=== PATIENT | male | born 1965 | race Two or more races ===

== ENCOUNTER 2020-05-14 10:00 | Outpatient (RCR) | payer BC, SELFPAY ==
--- NOTE | 2020-05-16 11:32 | MHC.PT.DC ---
[facility] [place] [facility] [place] [facility] [place] [facility] [address] Olesya Curtis [address] [phone] F: [phone] F: [phone] F: [phone] F: [phone] Physical Therapy Discharge Report Diagnosis: OA of L knee Date of Surgery: Date of Evaluation: 04/23/20 Date of Discharge: 05/16/20 Treatments to Date: 5 Cancellations to Date: 0 No Shows to Date: 1 Discharge Status: Achieved Goals Improved Function Independent with HEP Patient Elected to Stop Discharge Summary: Patient demos good tolerance with strengthening HEP, continued to lack full quad strength with quad set as of the last appointment. Demos normal ROM. Reports going to the gym. Patient called and reported ready for DC at this time and cancelled appointments. DC to HEP Electronically signed by: Alannah Ny Please sign and return to therapist. Thank you for your referral.
== END 2020-05-16 11:32 | disposition home or self-care (01) ==
LOC: HO.PTCHIC 10:00
PROVIDERS: Visit Provider Physician Assistant
DX: M17.12 Unilateral primary osteoarthritis, left knee (principal)
CPT/HCPCS: 97110; 97112

== ENCOUNTER → 2020-06-13 10:01 | Outpatient (BNVA) | payer BC, SELFPAY | PROVIDERS: Visit Provider Physician Assistant | DX: Z76.89 Persons encountering health services in other specified circumstances (principal) ==

== ENCOUNTER 2020-06-28 07:10 | Outpatient (REF) | payer BC, SELFPAY ==
--- NOTE | 2020-06-28 07:12 | MR_ITS ---
EXAMINATION: MR KNEE WITHOUT CONTRAST, LEFT CLINICAL INFORMATION: Unilateral primary osteoarthritis left knee. COMPARISON: Multiple prior x-rays of the left knee, most recent March 2020. TECHNIQUE: MRI of the knee without contrast was performed using routine sequences on a high-field scanner. FINDINGS: MENISCI: Medial Meniscus: There is slightly irregular increased signal in the posterior horn which appears to extend to the femoral articular surface. There is also blunting at the junction of the posterior horn and body with meniscal protrusion into the femoral meniscal recess, indicative of a partially detached meniscal fragment related to meniscal tear. See coronal image 18 series 5. The fragment measures approximately 10 x 3 x 10 mm Lateral Meniscus: Intact. LIGAMENTS: Cruciate: Intact. Collateral: Intact. EXTENSOR MECHANISM: Intact. ARTICULAR CARTILAGE/BONE: Patellofemoral Compartment: There is cartilage heterogeneity and at least partial-thickness cartilage loss present within the sulcus of the trochlea over an approximately 1 cm area. Patellar cartilage is intact. Overall, mild patellofemoral arthrosis. Medial Compartment: There is scattered nonuniform up to high-grade cartilage loss, most evident in the central weightbearing portion of the compartment. Overall, cartilage loss extends into the junction the posterior weightbearing and non-weightbearing portions of the femoral condyle. There are marginal osteophytes. There are subchondral cysts and edema. Overall, moderate medial compartment arthrosis. Lateral Compartment: Mild scattered cartilage heterogeneity along the tibial articular surface posteriorly. Overall, mild arthrosis. JOINT FLUID AND BURSAE: Mild effusion and synovitis. MR/MR knee LT wo con IMPRESSION: Tear of the medial meniscus with a partially detached meniscal fragment extending into the femoral meniscal recess. Tricompartmental arthrosis with degenerative changes, most prominent in the medial compartment being moderate.
== END 2020-06-28 07:11 | disposition home or self-care (01) ==
LOC: HO.MRI 07:10
PROVIDERS: Visit Provider Physician Assistant
DX: M17.12 Unilateral primary osteoarthritis, left knee (principal)
CPT/HCPCS: 73721

== ENCOUNTER 2020-07-04 10:46 | Outpatient (REF) | payer BC, SELFPAY ==
--- NOTE | 2020-07-04 10:47 | MR_ITS ---
EXAMINATION: MR KNEE WITHOUT CONTRAST, RIGHT CLINICAL INFORMATION: Right knee arthroplasty. COMPARISON: Most recent right knee radiographs dated 04/03/2020 and right knee MRI dated 12/19/2009. TECHNIQUE: MRI of the knee without contrast was performed using routine sequences on a high-field scanner. FINDINGS: Redemonstration of a total right knee arthroplasty. Associated artifact obscures the immediately adjacent osseous structures as well as the intra-articular ligaments. No significant marrow edema to suggest hardware complication. CT examination could help further evaluate fine bony detail. No significant joint effusion. The distal quadriceps and patellar tendons are intact. The visualized muscles and tendons are grossly intact. MR/MR knee RT wo con IMPRESSION: Total right knee arthroplasty. Associated artifact significantly limits the immediately adjacent osseous structures as well as the intra-articular ligaments. No adjacent marrow edema to suggest hardware complication. If there is persistent clinical concern, CT scan could help further evaluate bony detail/hardware loosening.
== END 2020-07-04 10:47 | disposition home or self-care (01) ==
LOC: HO.MRI 10:46
PROVIDERS: Visit Provider Physician Assistant
DX: M17.12 Unilateral primary osteoarthritis, left knee (principal)
CPT/HCPCS: 73721

== ENCOUNTER 2020-09-10 09:47 | Outpatient (REF) | payer BC, SELFPAY ==
[2020-09-10 11:22] LABS: MANUAL DIFF FLAG NO
[2020-09-10 11:34] LABS: Basophils Percent Auto 0.8 % (0-2); Eosinophils Absolute Auto 0.2 X10*3/uL (0.0-0.4); Hematocrit 45.9 % (42-52); Hemoglobin 14.7 g/dl (14.0-18.0); Imm Gran Abs Auto 0.01 X10*3/uL (0.00-0.03); Imm Gran Pct Auto 0.2 % (0.0-0.4); Lymphocytes Absolute Auto 2.1 X10*3/uL (1.2-4.9); Lymphocytes Percent Auto 39.8 % (20-40); Mean Corpuscular Hemoglobin 31.1 pg (27.0-33.0); Mean Corpuscular Volume 97.2 fL (80-98); Mean Platelet Volume 9.2 fL (9.4-12.4); Monocytes Absolute Auto 0.4 X10*3/uL (0.1-1.2); Monocytes Percent Auto 7.1 % (2-11); Neutrophils Absolute Auto 2.6 X10*3/uL (2.0-8.3); Neutrophils Percent Auto 49.1 % (45-73); Platelet Count 237 X10*3/uL (160-400); Red Blood Count 4.72 X10*6/uL (4.60-5.80); Red Cell Distribution Width 13.3 % (11.0-16.0); White Blood Count 5.3 X10*3/uL (4.8-10.8)
[2020-09-10 12:03] LABS: Alanine Aminotransferase 21 U/L (0-40); Albumin Level 4.7 g/dL (3.5-5.0); Alkaline Phosphatase 45 U/L (39-117); Anion Gap 12 (12-20); Aspartate Amino Transferase 35 U/L (5-37); Bilirubin Total 0.5 mg/dL (0.0-1.0); Blood Urea Nitrogen 21 mg/dL (9-16); Calcium 9.1 mg/dL (8.4-10.2); Carbon Dioxide 30 mmol/L (22-29); Chloride 107 mmol/L (96-108); Cholesterol 239 mg/dL; Estimated Glomerular Filt Rate 57; Glucose Fasting 98 mg/dL (60-99); HDL Cholesterol 79 mg/dL; LDL Cholesterol Calculated 148 mg/dl; Potassium 4.9 mmol/L (3.3-5.1); Sodium 144 mmol/L (135-145); Total Protein 7.2 g/dL (6.5-8.0); Triglycerides 62 mg/dL
[2020-09-10 12:25] LABS: Free T4 (Free Thyroxine) 0.49 ng/dL (0.71-1.85); PSA,Total (Free>4and<10) 0.44 ng/mL (0.00-4.00)
[2020-09-11 05:16] LABS: Thyroid Peroxidase Antibodies 11 IU/mL (<9)
== END 2020-09-10 09:48 | disposition home or self-care (01) ==
LOC: HO.HMGCLDS 09:47
PROVIDERS: Orthopaedic Surgery; PCP Internal Medicine; Visit Provider Internal Medicine
DX: Z01.812 Encounter for preprocedural laboratory examination (principal); E78.5 Hyperlipidemia, unspecified; E03.9 Hypothyroidism, unspecified; I10 Essential (primary) hypertension; Z12.5 Encounter for screening for malignant neoplasm of prostate; Z80.42 Family history of malignant neoplasm of prostate
CPT/HCPCS: 36415; 80053; 80061; 84153; 84439; 84443; 85025; 86376

== ENCOUNTER → 2020-10-08 11:36 | Outpatient (BNVA) | payer BC, SELFPAY | PROVIDERS: PCP Internal Medicine; Visit Provider Physician Assistant ==

== ENCOUNTER 2020-11-12 09:06 | Outpatient (REF) | payer BC, SELFPAY ==
[2020-11-12 11:55] LABS: Anion Gap 11 (12-20); Blood Urea Nitrogen 18 mg/dL (9-16); Calcium 9.2 mg/dL (8.4-10.2); Carbon Dioxide 31 mmol/L (22-29); Chloride 105 mmol/L (96-108); Estimated Glomerular Filt Rate > 60; Glucose Random 94 mg/dL (60-115); Potassium 4.9 mmol/L (3.3-5.1); Sodium 142 mmol/L (135-145)
[2020-11-12 12:22] LABS: Thyroid Stimulating Hormone 15.39 uIU/mL (0.32-4.0)
[2020-11-12 12:41] LABS: Free T4 (Free Thyroxine) 0.81 ng/dL (0.71-1.85)
[2020-11-16 14:37] LABS: Testosterone, Free 63.2 pg/mL (35.0-155.0); Testosterone, Total 381 ng/dL (250-1100)
== END 2020-11-12 09:07 | disposition home or self-care (01) ==
LOC: HO.HMGCLDS 09:06
PROVIDERS: Orthopaedic Surgery; PCP Internal Medicine; Visit Provider Internal Medicine
DX: Z01.812 Encounter for preprocedural laboratory examination (principal); E89.0 Postprocedural hypothyroidism; N52.9 Male erectile dysfunction, unspecified
CPT/HCPCS: 36415; 80048; 84402; 84403; 84439; 84443

== ENCOUNTER 2020-11-13 07:45 | Day surgery (SDC) | payer BC, SELFPAY ==
[2020-11-06 16:03] VITALS: BMI 27.8
[2020-11-13 08:33] VITALS: BP 149/85; PULSE 59; RESP 18; TEMP 35.6; O2SAT 98
[2020-11-13] MEDS: Lactated Ringers 1,000 ML 50 ML IV (09:05)
--- NOTE | 2020-11-13 09:28 | P.HPSUR_ITS ---
Pre-Procedural Eval Section B Chief Complaint: Screening Relevant Family History (Specify if Yes): No Relevant Social History: None Present Medications: see Short Stay Collaborative assessment Medical History: Significant History (Dyslipidemia Essential hypertension Family history of prostate cancer in father Hyperlipemia Hypothyroid Lumbar disc herniation Postablative hypothyroidism) History of Previous Operations: Relevant previous surgery/procedure and date(s) (knee replacement) Allergies: Allergies Allergy/AdvReac Type Severity Reaction Status Date / Time No Known Allergies Allergy Verified 11/12/20 09:06 [No Known Allergies*] Review of Systems Sugical H&P ROS: Negative: Constitution, Cardiovascular, Respiratory, Neurological, Psychiatric, Hem-Onc, Allergic/Immunologic, Gastrointestinal, Genitourinary, Musculoskeletal, Integumentary, Endocrine and Eyes/Ears/Nose/ Throat Exam Surgical H&P Exam: Normal: HEENT, Normal: Heart, Normal: Lungs, Normal: Extremities, Normal: Abdomen, Normal: Skin and Normal: Neurological Plan Diagnosis/Plan: Unchanged I have reviewed the history and physical and performed a pertinent physical examination on my patient. No changes have occurred unless specified.
--- NOTE | 2020-11-13 09:33 | HO.ANESPROP2 ---
[facility] Active Problems Active Problems: All Active Problems (Updated 11/12/20 @ 09:02 by Cara Baugh MD) Erectile dysfunction (Acute) Osteoarthritis of left knee (Acute) Hemorrhoids (Acute) Postablative hypothyroidism (Acute) Family history of prostate cancer in father (Acute) Prostate cancer screening (Acute) Colon cancer screening (Acute) Lumbar disc herniation (Acute) Dyslipidemia (Acute) Essential hypertension (Acute) Past Medical History Medical History Colon cancer screening Dyslipidemia Erectile dysfunction Essential hypertension Family history of prostate cancer in father Hyperlipemia Hypothyroid Lumbar disc herniation Postablative hypothyroidism Prostate cancer screening Family History Family History Mother GERD (gastroesophageal reflux disease) Breast cancer Father HTN (hypertension) CVA (cerebral vascular accident) Prostate cancer Surgical History Surgical History History of circumcision History of total right knee replacement Social History Social History Household Members: Spouse Are you a primary dog daycare provider to a significant other at home: No Do you presently have visiting nurse or other home services: No Alcohol intake: current Alcohol intake frequency: a few times a week Alcohol type: beer Smoking Status: Former smoker Use of substances other than those prescribed or required for medical reasons: No Have you been hit, kicked, punched, or otherwise hurt by someone within the past year? 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 Meds Allergies Allergy/AdvReac Type Severity Reaction Status Date / Time No Known Allergies Allergy Verified 11/12/20 09:06 [No Known Allergies*] Active Medications: Current Medications Generic Name Dose Route Start Last Admin Trade Name Freq PRN Reason Stop Dose Admin Lactated Ringer's 1,000 mls @ 50 mls/hr 11/13/20 07:15 11/13/20 09:05 Lr IV 50 mls/hr .Q20H MOISÉS Administration Exam Exam Date and Time: November 13, 2020 0933 Height,Weight and Vital Signs: Height 5 ft 7 in Weight 80.739 kg Last Vital Signs Temp 96.0 F L 11/13/20 08:33 Pulse 59 11/13/20 08:33 Resp 18 11/13/20 08:33 BP 149/85 H 11/13/20 08:33 Pulse Ox 98 11/13/20 08:33 Airway Mallampati Class: I TM Dist: >3cm Neck ROM: Full Loose/Missing/Broken Teeth: No Assessment and Plan Assessment Anesthesia Assessment: Anesthesia Plan Discussed Final Anesthetic Review NPO: Yes ASA Class: II Final Preanesthetic Review: No Changes in Pt Med Stat, Meds/Allgs Chart Reviewed, Consent Obtained/Reviewed and Anes Risks/Benef Reviewed Patient Risk: Low Procedure Risk: Low Anesthetic Plan Anesthetic Plan: MAC: Disposition: Standard PACU
--- NOTE | 2020-11-13 09:42 | PM.OP ---
Brief Operative Note Date of Service: 11/13/20 Pre-op diagnosis: colon screening Post-op diagnosis: same Procedure: see op note Surgeon: Ronnie Moore MD Anesthesia: MAC Estimated blood loss (mL): 0 Condition: stable Disposition: PACU
--- NOTE | 2020-11-13 09:42 | W.PM.OPN ---
Operative Note Operative Note Date of Service: 11/13/20 Narrative: Operative Information Procedure Description: Colonoscopy COLONOSCOPY Instrument: Olympus variable stiffness pediatric scope 190L Colonoscopy Monitoring: Vital signs and clinical assessment, continuous EKG monitoring, Pulse oximetry, Carbon Dioxide monitoring and blood pressure monitoring were done throughout the procedure. Colon withdrawal time was 10 minutes. Procedure: The patient was placed in the left lateral decubitis position and pre-procedure medications were administered. After a digital rectal examination of the ano-rectum, the video colonoscope was inserted into the rectum and advanced through the colon to the cecum/TI. The colonoscope was slowly withdrawn in a retrograde panoramic fashion and the colon mucosa was carefully examined including a retroflexed view of the rectum. Findings and interventions are described below. Procedure Difficulty:easy Findings: Terminal Ileum-normal Cecum:normal Ascending Colon: normal Transverse Colon -normal Descending Colon:normal Sigmoid Colon: normal Rectum: Retroflexion with internal and external hemorrhoids Anorectum - normal Colon preparation: Crawley Bowel Preparation Scale Right colon; 2 Transverse colon: 2 Left colon; 2 (0 = Unprepared colon segment with mucosa not seen due to solid stool that cannot be cleared. 1 = Portion of mucosa of the colon segment seen, but other areas of the colon segment not well seen due to staining, residual stool and/or opaque liquid. 2 = Minor amount of residual staining, small fragments of stool and/or opaque liquid, but mucosa of colon segment seen well. 3 = Entire mucosa of colon segment seen well with no residual staining, small fragments of stool or opaque liquid) Impression and Post Procedure Diagnosis: internal and external hemorrhoids Plan: High fiber diet leaflet Avoid straining at stool, epsom salts and sitz bath, anusol supps or cream prn Repeat Colonoscopy in 10 years or earlier if clinically indicated Above findings were reviewed with the patient and relevant handouts were provided if indicated.
[2020-11-13 10:10] VITALS: BP 114/67; PULSE 54; RESP 12; TEMP 36.1; O2SAT 98
[2020-11-13 10:23] VITALS: BP 121/83; PULSE 47; RESP 16; O2SAT 99
[2020-11-13 10:35] VITALS: PULSE 56; TEMP 35.9
== END 2020-11-13 10:50 | disposition home or self-care (01) ==
PROVIDERS: PCP Internal Medicine; Visit Provider Internal Medicine Gastroenterology
PROC: 0DJD8ZZ Inspection of Lower Intestinal Tract, Via Natural or Artificial Opening Endoscopic (ICD-10-PCS; CPT 45378; principal; 2020-11-13 09:20)
DX: Z12.11 Encounter for screening for malignant neoplasm of colon (principal); K64.8 Other hemorrhoids; K64.4 Residual hemorrhoidal skin tags; I10 Essential (primary) hypertension; E89.0 Postprocedural hypothyroidism; Y83.9 Surgical procedure, unspecified as the cause of abnormal reaction of the patient, or of later complication, without mention of misadventure at the time of the procedure; Z79.899 Other long term (current) drug therapy
CPT/HCPCS: 45378

== ENCOUNTER → 2020-11-28 11:03 | Outpatient (BNVA) | payer BC, SELFPAY | PROVIDERS: Visit Provider Physician Assistant ==

== ENCOUNTER 2020-12-16 11:36 | Outpatient (REF) | payer BC, SELFPAY ==
[2020-12-16 14:38] LABS: Alanine Aminotransferase 19 U/L (0-40); Anion Gap 12 (12-20); Aspartate Amino Transferase 23 U/L (5-37); Blood Urea Nitrogen 21 mg/dL (9-16); Calcium 9.4 mg/dL (8.4-10.2); Carbon Dioxide 28 mmol/L (22-29); Chloride 107 mmol/L (96-108); Cholesterol 171 mg/dL; Estimated Glomerular Filt Rate > 60; Glucose Fasting 89 mg/dL (60-99); HDL Cholesterol 93 mg/dL; LDL Cholesterol Calculated 68 mg/dl; Potassium 5.2 mmol/L (3.3-5.1); Sodium 142 mmol/L (135-145); Triglycerides 53 mg/dL
[2020-12-16 14:45] LABS: Cholesterol 183 mg/dL; HDL Cholesterol 93 mg/dL; LDL Cholesterol Calculated 80 mg/dl; Triglycerides 52 mg/dL
[2020-12-16 14:47] LABS: Free T4 (Free Thyroxine) 0.78 ng/dL (0.71-1.85); Thyroid Stimulating Hormone 11.25 uIU/mL (0.32-4.0)
[2020-12-17 18:56] LABS: Thyroid Peroxidase Antibodies 9 IU/mL (<9)
== END 2020-12-16 11:37 | disposition home or self-care (01) ==
LOC: HO.HMGCLDS 11:36
PROVIDERS: PCP Internal Medicine; Visit Provider Internal Medicine
DX: E78.5 Hyperlipidemia, unspecified (principal); E89.0 Postprocedural hypothyroidism; I10 Essential (primary) hypertension
CPT/HCPCS: 36415; 80048; 80061; 84439; 84443; 84450; 84460; 86376

== ENCOUNTER 2021-04-01 10:14 | Outpatient (REF) | payer BC, SELFPAY ==
[2021-04-01 12:01] LABS: Alanine Aminotransferase 20 U/L (0-40); Anion Gap 12 (12-20); Aspartate Amino Transferase 27 U/L (5-37); Blood Urea Nitrogen 18 mg/dL (9-16); Calcium 9.4 mg/dL (8.4-10.2); Carbon Dioxide 30 mmol/L (22-29); Chloride 105 mmol/L (96-108); Cholesterol 172 mg/dL; Estimated Glomerular Filt Rate > 60; Glucose Fasting 96 mg/dL (60-99); HDL Cholesterol 81 mg/dL; LDL Cholesterol Calculated 78 mg/dl; Potassium 4.5 mmol/L (3.3-5.1); Sodium 142 mmol/L (135-145); Triglycerides 67 mg/dL
[2021-04-01 12:24] LABS: Free T4 (Free Thyroxine) 0.61 ng/dL (0.71-1.85); Thyroid Stimulating Hormone 23.67 uIU/mL (0.32-4.0)
== END 2021-04-01 10:15 | disposition home or self-care (01) ==
LOC: HO.HMGCLDS 10:14
PROVIDERS: PCP Internal Medicine; Visit Provider Internal Medicine
DX: E78.5 Hyperlipidemia, unspecified (principal); E89.0 Postprocedural hypothyroidism; I10 Essential (primary) hypertension
CPT/HCPCS: 36415; 80048; 80061; 84439; 84443; 84450; 84460

== ENCOUNTER 2021-08-07 08:38 | Outpatient (REF) | payer BC, SELFPAY ==
--- NOTE | ~2021-08-07 | XR_ITS ---
EXAMINATION: XR KNEE, LEFT XR KNEE STANDING, BILATERAL CLINICAL INFORMATION: Pain COMPARISON: MRI right knee from 07/04/2020, MRI left knee from 06/28/2020, bilateral knee radiographs from 04/03/2020 TECHNIQUE: Standing views of both knees and 2 views of the left knee FINDINGS: No acute visible fracture or dislocation. Status post right knee arthroplasty. Orthopedic hardware is grossly intact. Moderate multicompartment degenerative changes of the left knee. Moderate narrowing of the medial femorotibial compartments and lateral patellofemoral compartment. Periarticular osteophytes along the superior inferior margins of the patella. Joint spaces and alignment are otherwise maintained. Trace left-sided knee joint effusion. Soft tissues are unremarkable. XR/XR knee LT 2V IMPRESSION: 1. No acute visible fracture or dislocation. 2. Status post right knee arthroplasty. Orthopedic hardware is grossly intact. 3. Moderate multicompartment degenerative changes of the left knee. 4. Trace left-sided knee joint effusion.
--- NOTE | ~2021-08-07 | XR_ITS ---
EXAMINATION: XR KNEE, LEFT XR KNEE STANDING, BILATERAL CLINICAL INFORMATION: Pain COMPARISON: MRI right knee from 07/04/2020, MRI left knee from 06/28/2020, bilateral knee radiographs from 04/03/2020 TECHNIQUE: Standing views of both knees and 2 views of the left knee FINDINGS: No acute visible fracture or dislocation. Status post right knee arthroplasty. Orthopedic hardware is grossly intact. Moderate multicompartment degenerative changes of the left knee. Moderate narrowing of the medial femorotibial compartments and lateral patellofemoral compartment. Periarticular osteophytes along the superior inferior margins of the patella. Joint spaces and alignment are otherwise maintained. Trace left-sided knee joint effusion. Soft tissues are unremarkable. XR/XR knee standing BI IMPRESSION: 1. No acute visible fracture or dislocation. 2. Status post right knee arthroplasty. Orthopedic hardware is grossly intact. 3. Moderate multicompartment degenerative changes of the left knee. 4. Trace left-sided knee joint effusion.
== END 2021-08-07 08:39 | disposition home or self-care (01) ==
LOC: HO.HOSX 08:38
PROVIDERS: Visit Provider Orthopaedic Surgery
DX: M17.12 Unilateral primary osteoarthritis, left knee (principal)
CPT/HCPCS: 73560; 73565

== ENCOUNTER 2021-09-23 09:47 | Outpatient (REF) | payer BC, SELFPAY ==
[2021-09-23 12:05] LABS: Alanine Aminotransferase 17 U/L (0-40); Anion Gap 12 (12-20); Aspartate Amino Transferase 25 U/L (5-37); Blood Urea Nitrogen 22 mg/dL (9-16); Calcium 9.4 mg/dL (8.4-10.2); Carbon Dioxide 28 mmol/L (22-29); Chloride 108 mmol/L (96-108); Cholesterol 170 mg/dL; Estimated Glomerular Filt Rate > 60; Glucose Fasting 97 mg/dL (60-99); HDL Cholesterol 75 mg/dL; LDL Cholesterol Calculated 75 mg/dl; Potassium 4.6 mmol/L (3.3-5.1); Sodium 143 mmol/L (135-145); Triglycerides 101 mg/dL
[2021-09-23 12:15] LABS: Free T4 (Free Thyroxine) 0.65 ng/dL (0.71-1.85); Thyroid Stimulating Hormone 15.88 uIU/mL (0.32-4.0)
== END 2021-09-23 09:48 | disposition home or self-care (01) ==
LOC: HO.HMGCLDS 09:47
PROVIDERS: PCP Internal Medicine; Visit Provider Internal Medicine
DX: E03.9 Hypothyroidism, unspecified (principal); E78.5 Hyperlipidemia, unspecified; E89.0 Postprocedural hypothyroidism; I10 Essential (primary) hypertension
CPT/HCPCS: 36415; 80048; 80061; 84439; 84443; 84450; 84460

== ENCOUNTER → 2021-10-01 09:51 | Outpatient (BNVA) | payer BC, SELFPAY | PROVIDERS: PCP Internal Medicine; Visit Provider Orthopaedic Surgery ==

== ENCOUNTER 2021-10-20 10:30 | Outpatient (REF) | payer BC, SELFPAY ==
[2021-10-20 11:32] LABS: MANUAL DIFF FLAG NO
[2021-10-20 11:51] LABS: Basophils Percent Auto 0.3 % (0-2); Eosinophils Absolute Auto 0.2 X10*3/uL (0.0-0.4); Eosinophils Percent Auto 3.1 % (0-4); Hematocrit 47.6 % (42.0-52.0); Hemoglobin 15.1 g/dl (14.0-18.0); Imm Gran Abs Auto 0.01 X10*3/uL (0.00-0.03); Imm Gran Pct Auto 0.2 % (0.0-0.4); Lymphocytes Absolute Auto 2.6 X10*3/uL (1.2-4.9); Lymphocytes Percent Auto 44.1 % (20-40); Mean Corpuscular HGB Conc 31.7 g/dl (31.0-36.0); Mean Corpuscular Volume 97.7 fL (80.0-98.0); Mean Platelet Volume 9.4 fL (9.4-12.4); Monocytes Absolute Auto 0.6 X10*3/uL (0.1-1.2); Neutrophils Absolute Auto 2.5 x10*3/uL (2.0-8.3); Neutrophils Percent Auto 42.3 % (45-73); Platelet Count 230 X10*3/uL (160-400); Red Blood Count 4.87 X10*6/uL (4.60-5.80); White Blood Count 5.9 X10*3/uL (4.8-10.8)
[2021-10-20 12:02] LABS: Anion Gap 10 (12-20); Blood Urea Nitrogen 18 mg/dL (9-16); Calcium 9.6 mg/dL (8.4-10.2); Carbon Dioxide 31 mmol/L (22-29); Chloride 105 mmol/L (96-108); Estimated Glomerular Filt Rate > 60; Glucose Random 99 mg/dL (60-115); Potassium 4.4 mmol/L (3.3-5.1); Sodium 142 mmol/L (135-145)
== END 2021-10-20 10:31 | disposition home or self-care (01) ==
LOC: HO.HMGCLDS 10:30
PROVIDERS: Visit Provider Orthopaedic Surgery
DX: Z01.812 Encounter for preprocedural laboratory examination (principal)
CPT/HCPCS: 36415; 80048; 85025

== ENCOUNTER → 2021-10-30 09:45 | Outpatient (BNVA) | payer BC, SELFPAY | PROVIDERS: Visit Provider Physician Assistant | DX: Z13.89 Encounter for screening for other disorder (principal) ==

== ENCOUNTER 2021-11-04 07:29 | Inpatient (IN) | payer BC, SELFPAY ==
--- NOTE | 2021-10-01 10:34 | ECG_ITS ---
Test Reason : Z01.818 Blood Pressure : / mmHG Vent. Rate : 050 BPM Atrial Rate : 050 BPM P-R Int : 158 ms QRS Dur : 102 ms QT Int : 448 ms P-R-T Axes : 029 010 044 degrees QTc Int : 408 ms Sinus bradycardia Minimal voltage criteria for LVH, may be normal variant ( Sokolow-Rosenberg ) Nonspecific T wave abnormality Abnormal ECG When compared with ECG of 15-MAR-2013 18:40, No significant change was found Referred By: Cara Baugh Electronically Signed By:CODY DIEZ MD
[2021-10-28 11:57] VITALS: BP 160/87; PULSE 48; RESP 16; O2SAT 98; BMI 28.4
--- NOTE | 2021-10-28 12:14 | HO.ANESPROP2 ---
Documented by User: Latricia Murillo NP 11/03/21 08:11 HPI - Anesthesia Eval Consult details Narrative: 56yo M for Left Knee Replacement Total PCP clearance pending 10/29/21 s/p R TKA in 2012 [facility] Active Problems Active Problems: All Active Problems (Updated 10/28/21 @ 11:57 by Susy Sal RN) Osteoarthritis of left knee (Acute) Hemorrhoids (Acute) Mixed anxiety and depressive disorder (Acute) Erectile dysfunction (Acute) Postablative hypothyroidism (Acute) Family history of prostate cancer in father (Acute) Prostate cancer screening (Acute) Colon cancer screening (Acute) Lumbar disc herniation (Acute) Dyslipidemia (Acute) Essential hypertension (Acute) Past Medical History Medical History (Updated 10/31/21 @ 11:55 by Cara Baugh MD) Dyslipidemia Erectile dysfunction Essential hypertension Family history of prostate cancer in father Hyperlipemia Hypothyroid Lumbar disc herniation Mixed anxiety and depressive disorder Osteoarthritis Postablative hypothyroidism Family History Family History Mother GERD (gastroesophageal reflux disease) Breast cancer Father HTN (hypertension) CVA (cerebral vascular accident) Prostate cancer Family history of problems with anesthesia: No Surgical History Surgical History History of circumcision History of total right knee replacement Hx of colonoscopy History of Problems with Anesthesia: No Social History Social History Household Members: Family Household Members Other:: father Housing: House Are you a primary career manager to a significant other at home: No Do you presently have visiting nurse or other home services: No Alcohol intake: current Alcohol intake frequency: a few times a month Patient Tobacco Use Status: Never used Tobacco e-Cigarette/Vaping Use: Never Used Use of substances other than those prescribed or required for medical reasons: No Have you been hit, kicked, punched, or otherwise hurt by someone within the past year? If so, by whom?: No Do you feel safe in your current relationship?: Yes Is there a partner from a previous relationship who is making you feel unsafe now?: No Are you made to feel afraid or neglected: No Spiritual Healthcare Practices: none Orthodoxy Healthcare Practices: none Cultural Healthcare Practices: none Are you DNR?: No Advance Directives: No Advance Directives Information Provided: Yes Do you have thoughts of harming others: None Do you have a plan to hurt others: No Plan Recently lost weight without trying: No Eating poorly because of decreased appetite: No Nutrition Risks: No Nutritional Risk Poor oral hygiene: No Current occupational status: employed 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 Resolved completely at PAT No CP/SOB with activity. Activity limited to pain Meds Allergies Allergy/AdvReac Type Severity Reaction Status Date / Time No Known Allergies Allergy Verified 10/31/21 11:46 [No Known Allergies*] Home Medications Medication Instructions Recorded Confirmed Last Taken Type acetaminophen 500 mg tablet 1,000 mg PO QID PRN 10/28/21 10/31/21 Unknown History celecoxib 200 mg capsule 200 mg PO BID PRN 10/28/21 10/31/21 Unknown History tadalafil 20 mg tablet 1 tab PO NEEDED PRN 11/04/21 11/04/21 Unknown History Exam Exam Date and Time: October 28, 2021 1214 Height,Weight and Vital Signs: Height 5 ft 6 in Weight 79.9 kg Last Vital Signs Pulse 48 L 10/28/21 11:57 Resp 16 10/28/21 11:57 BP 160/87 H 10/28/21 11:57 Pulse Ox 98 10/28/21 11:57 Pertinent Lab Results Pertinent Lab Results: Laboratory Tests 10/20/21 10/20/21 10:34 10:34 WBC 5.9 Hgb 15.1 Hct 47.6 Plt Count 230 Sodium 142 Potassium 4.4 Chloride 105 Carbon Dioxide 31 H BUN 18 H Creatinine 1.06 Airway Mallampati Class: I TM Dist: >3cm Neck ROM: Full Heart: elba, RR Lungs: CTAB Assessment and Plan Assessment Anesthesia Assessment: Anesthesia Plan Discussed and PAT Visit Final Anesthetic Review Family History of Problems with Anesthesia: No History of Problems with Anesthesia: No Documented by User: Eligio Turner MD 11/04/21 17:24 HPI - Anesthesia Eval Consult details Narrative: 56yo M for Left Knee Replacement Total PCP clearance pending 10/29/21 atypical chest pain , last episode 1 year . optimized as per PCP . s/p R TKA in 2012 [facility] Past Medical History Medical History (Updated 10/31/21 @ 11:55 by Cara Baugh MD) Dyslipidemia Erectile dysfunction Essential hypertension Family history of prostate cancer in father Hyperlipemia Hypothyroid Lumbar disc herniation Mixed anxiety and depressive disorder Osteoarthritis Postablative hypothyroidism Functional capacity: independent ambulation Family History Family History Mother GERD (gastroesophageal reflux disease) Breast cancer Father HTN (hypertension) CVA (cerebral vascular accident) Prostate cancer Surgical History Surgical History History of circumcision History of total right knee replacement Hx of colonoscopy Social History Social History Household Members: Family Household Members Other:: father Housing: House Are you a primary career manager to a significant other at home: No Do you presently have visiting nurse or other home services: No Alcohol intake: current Alcohol intake frequency: a few times a month Patient Tobacco Use Status: Never used Tobacco e-Cigarette/Vaping Use: Never Used Use of substances other than those prescribed or required for medical reasons: No Have you been hit, kicked, punched, or otherwise hurt by someone within the past year? If so, by whom?: No Do you feel safe in your current relationship?: Yes Is there a partner from a previous relationship who is making you feel unsafe now?: No Are you made to feel afraid or neglected: No Spiritual Healthcare Practices: none Orthodoxy Healthcare Practices: none Cultural Healthcare Practices: none Are you DNR?: No Advance Directives: No Advance Directives Information Provided: Yes Do you have thoughts of harming others: None Do you have a plan to hurt others: No Plan Recently lost weight without trying: No Eating poorly because of decreased appetite: No Nutrition Risks: No Nutritional Risk Poor oral hygiene: No Current occupational status: employed 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 Cognitive needs: No Hearing needs: No Vision needs: No Meds Allergies Allergy/AdvReac Type Severity Reaction Status Date / Time No Known Allergies Allergy Verified 10/31/21 11:46 [No Known Allergies*] Home Medications Medication Instructions Recorded Confirmed Last Taken Type acetaminophen 500 mg tablet 1,000 mg PO QID PRN 10/28/21 10/31/21 Unknown History celecoxib 200 mg capsule 200 mg PO BID PRN 10/28/21 10/31/21 Unknown History tadalafil 20 mg tablet 1 tab PO NEEDED PRN 11/04/21 11/04/21 Unknown History Exam Airway Mallampati Class: III Loose/Missing/Broken Teeth: Yes Assessment and Plan Assessment Anesthesia Assessment: Chart Reviewed Final Anesthetic Review NPO: Yes ASA Class: II Final Preanesthetic Review: No Changes in Pt Med Stat, Meds/Allgs Chart Reviewed, Consent Obtained/Reviewed and Anes Risks/Benef Reviewed Patient Risk: Intermediate Procedure Risk: Intermediate Anesthetic Plan Anesthetic Plan: Spinal and Regional Block Disposition: Standard PACU
[2021-10-28 14:02] LABS: MRSA Nasal PCR NEGATIVE (Negative); SA Nasal PCR NEGATIVE (Negative)
[2021-11-04] VITALS (11 sets, daily range): BP systolic 90–185; BP diastolic 47–93; PULSE 38–82; RESP 16–18; TEMP 36.1–37.1; O2SAT 96–100
--- NOTE | ~2021-11-04 | XR_ITS ---
EXAMINATION: XR KNEE, LEFT CLINICAL INFORMATION: Total knee prosthesis COMPARISON: 08/07/2021 TECHNIQUE: Two views of the left knee. FINDINGS: Since the prior study, the patient has undergone a left total knee prosthesis. The prosthetic components are in good position. Surgical luana remain in place. Air is present in the joint space and subcutaneous tissues consistent with median postoperative state. XR/XR knee LT 2V IMPRESSION: Normal postop findings left total knee replacement
--- NOTE | 2021-11-04 08:49 | PC.NURSE ---
patient drank tea and milk only at 730am. scheduled procedure delayed per anesthesia md rayo. cant have the procedure until 1130am per anaesthesia and paul ok to proceed.
[2021-11-04 09:01] LABS: COVID-19 Test Negative (Negative)
[2021-11-04 09:04] LABS: MANUAL DIFF FLAG NO
[2021-11-04 09:10] LABS: Basophils Percent Auto 0.5 % (0-2); Eosinophils Absolute Auto 0.1 X10*3/uL (0.0-0.4); Eosinophils Percent Auto 1.9 % (0-4); Hematocrit 46.3 % (42.0-52.0); Hemoglobin 15.1 g/dl (14.0-18.0); Imm Gran Abs Auto 0.03 X10*3/uL (0.00-0.03); Imm Gran Pct Auto 0.5 % (0.0-0.4); Lymphocytes Absolute Auto 1.9 X10*3/uL (1.2-4.9); Lymphocytes Percent Auto 29.6 % (20-40); Mean Corpuscular HGB Conc 32.6 g/dl (31.0-36.0); Mean Corpuscular Hemoglobin 31.3 pg (27.0-33.0); Mean Corpuscular Volume 96.1 fL (80.0-98.0); Mean Platelet Volume 8.7 fL (9.4-12.4); Monocytes Absolute Auto 0.6 X10*3/uL (0.1-1.2); Neutrophils Absolute Auto 3.8 x10*3/uL (2.0-8.3); Neutrophils Percent Auto 58.5 % (45-73); Platelet Count 246 X10*3/uL (160-400); Red Blood Count 4.82 X10*6/uL (4.60-5.80); Red Cell Distribution Width 13.2 % (11.0-16.0); White Blood Count 6.5 X10*3/uL (4.8-10.8)
--- NOTE | 2021-11-04 10:43 | MHC.SHP ---
Pre-Procedural Eval Section A Date of Service: 11/04/21 The patient is an INPATIENT: No Changes since office visit: Yes Patient answered all questions; No Cold of Flu in the past 2 weeks, No New Medical Problems and No Changes in Medication The History & Physical has been completed within 30 days and I have reviewed it.: Yes Section B Chief Complaint: LT TKA Allergies: Allergies Allergy/AdvReac Type Severity Reaction Status Date / Time No Known Allergies Allergy Verified 10/31/21 11:46 [No Known Allergies*] Plan I have reviewed the history and physical and performed a pertinent physical examination on my patient. No changes have occurred unless specified.
[2021-11-04] MEDS: Lactated Ringers 1,000 ML 100 ML IVCONT ×2 (10:58→19:46)
--- NOTE | 2021-11-04 15:16 | PM.OP ---
Brief Operative Note Date of Service: 11/04/21 Pre-op diagnosis: left knee OA Post-op diagnosis: same Procedure: Left TKA Implants: Stryler triathalon cruciate retaining press fit 10/28/11CR/35a Surgeon: Wang Dasilva MD Anesthesia: regional and spinal Was an Oceanology Teacher used for this Procedure?: Yes Oceanology Teacher: Julee Flowers Estimated blood loss (mL): 150 IV fluids (mL): 1,000 Pathology: other Condition: stable Disposition: PACU
[2021-11-04] MEDS: oxyCODONE HCl ER 10 MG TAB.ER.12H PO (19:42)
[2021-11-04] MEDS: Docusate Sodium 100 MG CAPSULE PO (19:42)
[2021-11-04] MEDS: HYDROmorphone HCl 1 MG/ML SYRINGE 0.25 MG IVPUSH ×2 (19:43→23:45)
[2021-11-04] MEDS: Celecoxib 200 MG CAPSULE PO (19:43)
[2021-11-04] MEDS: 0.9 % Sodium Chloride Flush 3 ML SYRINGE IVFLUSH (19:44)
[2021-11-04] MEDS: ondansetron HCL 4 MG/2 ML VIAL IVPUSH (19:56)
[2021-11-04] MEDS: Acetaminophen 325 MG TABLET 650 MG PO (22:18)
[2021-11-04] MEDS: oxyCODONE HCl Immed Release 5 MG TABLET PO (22:18)
[2021-11-05] VITALS (8 sets, daily range): BP systolic 141–180; BP diastolic 73–91; PULSE 52–58; RESP 17–18; TEMP 36.1–36.6; O2SAT 96–98
[2021-11-05] MEDS: HYDROmorphone HCl 1 MG/ML SYRINGE 0.25 MG IVPUSH ×4 (04:14→22:51)
[2021-11-05] MEDS: Levothyroxine Sodium 150 MCG TABLET PO (05:18)
[2021-11-05] MEDS: Lactated Ringers 1,000 ML 100 ML IVCONT ×2 (05:18→16:34)
[2021-11-05 06:00] LABS: MANUAL DIFF FLAG NO
[2021-11-05 06:06] LABS: Basophils Percent Auto 0.1 % (0-2); Hematocrit 41.4 % (42.0-52.0); Hemoglobin 13.4 g/dl (14.0-18.0); Imm Gran Abs Auto 0.04 X10*3/uL (0.00-0.03); Imm Gran Pct Auto 0.3 % (0.0-0.4); Lymphocytes Absolute Auto 1.5 X10*3/uL (1.2-4.9); Lymphocytes Percent Auto 11.1 % (20-40); Mean Corpuscular HGB Conc 32.4 g/dl (31.0-36.0); Mean Corpuscular Hemoglobin 30.8 pg (27.0-33.0); Mean Corpuscular Volume 95.2 fL (80.0-98.0); Mean Platelet Volume 8.9 fL (9.4-12.4); Monocytes Absolute Auto 1.1 X10*3/uL (0.1-1.2); Monocytes Percent Auto 8.5 % (2-11); Neutrophils Absolute Auto 10.6 x10*3/uL (2.0-8.3); Platelet Count 224 X10*3/uL (160-400); Red Blood Count 4.35 X10*6/uL (4.60-5.80); Red Cell Distribution Width 12.9 % (11.0-16.0); White Blood Count 13.2 X10*3/uL (4.8-10.8)
[2021-11-05 06:33] LABS: Anion Gap 13 (12-20); Blood Urea Nitrogen 17 mg/dL (9-16); Calcium 9.2 mg/dL (8.4-10.2); Carbon Dioxide 27 mmol/L (22-29); Chloride 103 mmol/L (96-108); Creatinine Clr Calc Pharmacy 86.4; Estimated Glomerular Filt Rate > 60; Glucose Fasting 137 mg/dL (60-99); Potassium 4.8 mmol/L (3.3-5.1); Sodium 138 mmol/L (135-145)
--- NOTE | 2021-11-05 07:36 | P.PNOP_ITS ---
Subjective Subjective Date of Service: 11/05/21 Interval history: POD1 s/p LTKA resting comfortably in bed. No overnight events. Having some pain and will make adjustments accordingly. No additional complaints. Physical Exam Vital Signs: Vital Signs: Last Vital Signs Temp 97.5 F 11/05/21 03:53 Pulse 52 11/05/21 03:53 Resp 18 11/05/21 03:53 BP 179/88 H 11/05/21 03:53 Pulse Ox 97 11/05/21 03:53 BMI result Body Mass Index 28.4 Const: General: cooperative, healthy appearing and no acute distress Resp: Effort & Inspection: normal respiratory effort and able to speak in complete sentences Cardio: Rate: regular rate Peripheral pulses: Peripheral pulses 2+ t hroughout GI: Palpation (GI): Soft to palpation Skin: Lesions: no lesions Rashes: no rashes Extrem: Other: Left knee Aquacel is clean, dry, and intact. NVI. Procedures Date of Service Date of Service: 11/05/21 Progress Note: A&P Assessment and plan (1) S/P total knee arthroplasty: Status: Acute Plan Continue pain mgmnt, adjustment to 10mg oxycodone Begin ASA for dvt ppx begin PT for LTKA Dispo planning-Pending PT eval, pain mgmnt Fall Risk Details Current Medications: Current Medications Acetaminophen (Acetaminophen 325 Mg Tablet) 650 mg PO Q6H PRN PRN Reason: Pain, Mild (Pain Scale 1-3) Last Admin: 11/04/21 22:18 Dose: 650 mg Documented by: Aspirin (Aspirin 325 Mg Tablet) 325 mg PO BID [facility] Celecoxib (Celecoxib 200 Mg Capsule) 200 mg PO BID [facility] Last Admin: 11/04/21 19:43 Dose: 200 mg Documented by: Docusate Sodium (Docusate Sodium 100 Mg Capsule) 100 mg PO BID [facility] Last Admin: 11/04/21 19:42 Dose: 100 mg Documented by: Hydromorphone HCl (Hydromorphone Hcl 1 Mg/Ml Syringe) 0.25 mg IVPUSH Q4H PRN; Protocol PRN Reason: Pain, Severe (Pain Scale 7-10) Last Admin: 11/05/21 04:14 Dose: 0.25 mg Documented by: Lactated Ringer's (Lr) 1,000 mls @ 100 mls/hr IVCONT .Q10H [facility] Last Admin: 11/05/21 05:18 Dose: 100 mls/hr Documented by: Cefazolin Sodium/Dextrose (Ancef) 2 gm in 50 mls @ 100 mls/hr IV POSTOP [facility] Levothyroxine Sodium (Levothyroxine Sodium 150 Mcg Tablet) 150 mcg PO DAILY@0600 [facility] Last Admin: 11/05/21 05:18 Dose: 150 mcg Documented by: Ondansetron HCl (Ondansetron Hcl 4 Mg/2 Ml Vial) 4 mg IVPUSH Q8H PRN PRN Reason: Nausea and Vomiting Last Admin: 11/04/21 19:56 Dose: 4 mg Documented by: Oxycodone HCl (Oxycodone Hcl Immed Release 5 Mg Tablet) 5 mg PO Q4H PRN PRN Reason: Pain, Moderate (Pain Scale 4-6 Last Admin: 11/04/21 22:18 Dose: 5 mg Documented by: Oxycodone HCl (Oxycodone Hcl Er 10 Mg Tab.Er.12h) 10 mg PO BID [facility] Last Admin: 11/04/21 19:42 Dose: 10 mg Documented by: Sodium Chloride (0.9 % Sodium Chloride Flush 3 Ml Syringe) 3 ml IVFLUSH QSHIFT [facility] Last Admin: 11/04/21 19:44 Dose: 3 ml Documented by: Time Spent With Patient Time: Total time spent is greater than 50% in coordination of care (as documented) at patient's floor/unit and/or counseling patient: Quality Stroke Does the patient have a stroke diagnosis?: No VTE Prior VTE?: No VTE Risk Level:: Surgical - very high VTE Device Contraindication: N/A - Device Ordered VTE Drug Contraindication: N/A - Med Ordered
[2021-11-05] MEDS: Acetaminophen 325 MG TABLET 650 MG PO (07:54)
[2021-11-05] MEDS: oxyCODONE HCl Immed Release 5 MG TABLET 10 MG PO ×3 (07:55→16:34)
[2021-11-05] MEDS: Docusate Sodium 100 MG CAPSULE PO ×2 (07:55→19:42)
[2021-11-05] MEDS: Celecoxib 200 MG CAPSULE PO ×2 (07:55→19:42)
[2021-11-05] MEDS: oxyCODONE HCl ER 10 MG TAB.ER.12H PO ×2 (07:56→19:42)
--- NOTE | 2021-11-05 09:12 | MHC.CM.PN ---
CM met with Patient at bedside. Patient will be staying with his at time of dc at [address] [place] [address], on the first floor.PT REC home with services;Home with new [facility] is the goal.CM has initiated and will follow for dc planning. Patient has received Pfizer/CovClarisonic vax X2 and PCP is DR. Cara Baugh.
--- NOTE | 2021-11-05 09:14 | W.PM.OPN ---
Operative Note Operative Note Date of Service: 11/05/21 Narrative: Date of Service: 11/04/21 Pre-op diagnosis: left knee OA Post-op diagnosis: same Procedure: Left TKA Implants: Stryler triathalon cruciate retaining press fit 10/28/11CR/35a Surgeon: Wang Dasilva MD Anesthesia: regional and spinal Was an Environmental Engineering Assistant used for this Procedure?: Yes Environmental Engineering Assistant: Julee Flowers Estimated blood loss (mL): 150 IV fluids (mL): 1,000 Pathology: other Condition: stable Disposition: PACU Procedure in detail: The patient was brought to the operating room and prepped and draped in standard sterile fashion. A time-out was called to identify proper site proper procedure proper surgeon and IV antibiotics were administered. 1 g of IV tranexamic acid was administered. I began by making a midline incision to the retinaculum and performed a medial parapatellar arthrotomy. The patella was translated laterally and the knee was flexed up. The medial compartment was eburnated. I performed a small medial peel and resected the infrapatellar fat pad. [place]'s line was then used to drill my intramedullary femoral guide and my distal femur cut of 10 mm was made in 5 degrees of valgus while protecting the soft tissues. I then measured a #4 femur and placed my cutting guide in 3deg of external rotation and made my anterior posterior and chamfer cuts protecting the soft tissues at all times. Once I was satisfied with my cuts I turned my attention to the tibia. I removed the meniscus medially and laterally and , using an external cutting guide, in line with the tibial crest and the third ray, I made my distal tibial cut in 3 deg slope of while protecting the PCL the posterior soft tissues at all times. An extension block was used to confirm appropriate amount of bony resection. I then sized a #4 tibia and once I was satisfied that there was complete tibial coverage I placed my trial and with the trial femur in place took the knee through range of motion. I was satisfied with the extension and flexion as well as the stability at 0, 30 and 90 degrees. The knee gaps were balanced at 0, 30- and 90 deg. I then turned my attention to the patella where I removed 1 cm from the undersurface of the patella and then trialed a 35a patellar button. Again the knee was taken through range of motion I was satisfied with the tracking. I then returned to the femur and drilled my femoral lug holes and prepared the tibia. A femoral bone plug was placed and the knee was irrigated copiously. I then press fit the patella, tibia and femur in standard fashion. I trialed different inserts until I selected a #12 insert. The final insert was placed and a 3 minutes iodine soak with local TXA was performed. The knee was then closed with a running Quill suture, a 3 0 Vicryl and luana on the skin. Patient was then placed in sterile dressing and brought to recovery room in stable condition there were no known complications. A Werewolf cautery wand was used to maintain hemostasis over the capsule and meniscal beds, the gutters and peripatellar soft tissues.
[2021-11-05] MEDS: lisinopriL 10 MG TABLET PO (09:22)
--- NOTE | 2021-11-05 10:16 | HO.POSTANES ---
Post Anesthesia Evaluation Post Anesthesia Evaluation Vital Signs: Vital Signs Temp Pulse Resp BP Pulse Ox 11/05/21 08:52 56 96 11/05/21 08:07 97.1 F 56 18 180/91 H 96 11/05/21 03:53 97.5 F 52 18 179/88 H 97 11/04/21 23:26 97.4 F 58 18 185/90 H 98 Anesthesia: Spinal and Nerve Block Mental Status: Awake Pain Control: Satisfactory Nausea/Vomiting: None Hydration: Adequate Anesthesia-Related Issues: No Anes. Related Issues
[2021-11-05] MEDS: Aspirin 325 MG TABLET PO ×2 (11:42→21:38)
[2021-11-05] MEDS: Atorvastatin Calcium 20 MG TABLET PO (19:41)
[2021-11-05] MEDS: LORazepam 0.5 MG TABLET 0.25 MG PO (22:47)
[2021-11-06 03:17] VITALS: BP 166/85; PULSE 70; RESP 17; TEMP 36.1; O2SAT 100
[2021-11-06] MEDS: oxyCODONE HCl Immed Release 5 MG TABLET 10 MG PO ×3 (04:36→12:36)
[2021-11-06] MEDS: Levothyroxine Sodium 150 MCG TABLET PO (04:37)
[2021-11-06 06:06] LABS: MANUAL DIFF FLAG NO
[2021-11-06 06:17] LABS: Basophils Percent Auto 0.1 % (0-2); Eosinophils Percent Auto 0.2 % (0-4); Hematocrit 40.4 % (42.0-52.0); Hemoglobin 12.9 g/dl (14.0-18.0); Imm Gran Abs Auto 0.06 X10*3/uL (0.00-0.03); Imm Gran Pct Auto 0.5 % (0.0-0.4); Lymphocytes Percent Auto 8.1 % (20-40); Mean Corpuscular HGB Conc 31.9 g/dl (31.0-36.0); Mean Corpuscular Hemoglobin 30.6 pg (27.0-33.0); Mean Platelet Volume 8.8 fL (9.4-12.4); Monocytes Percent Auto 8.3 % (2-11); Neutrophils Percent Auto 82.8 % (45-73); Platelet Count 192 X10*3/uL (160-400); Red Blood Count 4.21 X10*6/uL (4.60-5.80); White Blood Count 12.1 X10*3/uL (4.8-10.8)
[2021-11-06 06:33] LABS: Anion Gap 12 (12-20); Blood Urea Nitrogen 11 mg/dL (9-16); Calcium 8.9 mg/dL (8.4-10.2); Carbon Dioxide 28 mmol/L (22-29); Chloride 104 mmol/L (96-108); Estimated Glomerular Filt Rate > 60; Glucose Fasting 133 mg/dL (60-99); Potassium 4.4 mmol/L (3.3-5.1); Sodium 140 mmol/L (135-145)
[2021-11-06 07:40] VITALS: BP 154/74; PULSE 76; RESP 18; TEMP 36.6; O2SAT 97
[2021-11-06] MEDS: lisinopriL 10 MG TABLET PO (08:24)
[2021-11-06] MEDS: Docusate Sodium 100 MG CAPSULE PO (08:25)
[2021-11-06] MEDS: oxyCODONE HCl ER 10 MG TAB.ER.12H PO (08:25)
[2021-11-06] MEDS: Celecoxib 200 MG CAPSULE PO (08:26)
[2021-11-06] MEDS: Aspirin 325 MG TABLET PO (08:26)
[2021-11-06] MEDS: Acetaminophen 325 MG TABLET 650 MG PO (08:28)
[2021-11-06 09:04] VITALS: BP 154/74; PULSE 76; O2SAT 97
--- NOTE | 2021-11-06 09:28 | P.DS_ITS ---
DS: Providers Provider Date of Service: 11/06/21 Date of admission: 11/04/21 07:29 Primary care physician: Cara Baugh MD DS: Diagnosis Discharge Diagnosis (1) S/P total knee arthroplasty: Status: Acute DS: Summary Hospital Course Hospital Course: The patient underwent a successful left total knee arthroplasty, was transferred to PACU and then to the floor to recover. During their stay, their vitals were stable, afebrile at . Labs were unremarkable, H/H 12.9/40.4 . POD 1 he was started on ASA for DVT ppx, they also received PT services twice a day. Prior to discharge, their dressing was change, incision clean dry and intact, new Aquacel dressing applied and the plan was to be discharged home with VNA Time Spent with Patient Time attestation: Total time spent providing and/or coordinating discharge services: Discharge coordination time: Less than 30 minutes Quality: Safe Use of Opioids Does Pt have an Active Cancer Diagnosis on the Problem List?: No Quality: Stroke Does the patient have a stroke diagnosis?: No Physical Exam Vital Signs: Vital Signs: Last Vital Signs Temp 97.8 F 11/06/21 07:40 Pulse 76 11/06/21 09:04 Resp 18 11/06/21 07:40 BP 154/74 H 11/06/21 09:04 Pulse Ox 97 11/06/21 09:04 BMI result Body Mass Index 28.4 Const: General: cooperative, healthy appearing and no acute distress Resp: Effort & Inspection: normal respiratory effort and able to speak in complete sentences Cardio: Rate: regular rate Peripheral pulses: Peripheral pulses 2+ throughout GI: Palpation (GI): Soft to palpation Skin: General skin exam: no rashes or lesions noted Extrem: Other: incision clean dry and intact. [place] intact. No erythema or joint effusion. Calf supple nontender. Neurovascularly intact. DS: Data Data Completed and Pending Pending studies at discharge: Pending at discharge 11/04/21 14:57 Surgical [PTH] Routine Labs on day of discharge: Laboratory Results - last 24 hr 11/06/21 11/06/21 05:59 05:59 WBC 12.1 H RBC 4.21 L Hgb 12.9 L Hct 40.4 L MCV 96.0 MCH 30.6 MCHC 31.9 RDW 13.0 Plt Count 192 MPV 8.8 L Immature Gran % (Auto) 0.5 H Neut % (Auto) 82.8 H Lymph % (Auto) 8.1 L [place] % (Auto) 8.3 Eos % (Auto) 0.2 Baso % (Auto) 0.1 Lymph # (Auto) 1.0 L [place] # (Auto) 1.0 Eos # (Auto) 0.0 Baso # (Auto) 0.0 Abs Immat Gran (auto) 0.06 H Absolute Neuts (auto) 10.0 H Absolute Nucleated RBC 0.000 Nucleated RBC % (auto) 0.0 Sodium 140 Potassium 4.4 Chloride 104 Carbon Dioxide 28 Anion Gap 12 BUN 11 Creatinine 1.01 Estim Creat Clear Calc 83.0 Estimated GFR > 60 Fasting Glucose 133 H Calcium 8.9 Discharge Plan Discharge Patient Disposition: Home Health Service Discharge Diagnosis: lt tka Referrals: Eileen ALCANTAR [Outside] - 1 Day (discharged home with new referral to the [facility] for home p.t. pcp follow up for post hospitla discharge orthpedic sutgical follow up as directed on the disvharge packet) Julee Flowers PA-C [Physician [employer]] - 2 Weeks (11/20/21 11:30 [facility] Julee Flowers PA-C) Discharge Medications: New docusate sodium 100 mg Capsule 100 mg PO BID 30 Days Qty: 60 0RF oxycodone 5 mg tablet 5 mg PO Q4H PRN (Reason: Pain, Moderate (Pain Scale 4-6) 7 Days Qty: 42 0RF acetaminophen 325 mg Tablet 650 mg PO Q6H PRN (Reason: Pain, Mild (Pain Scale 1-3)) 30 Days Qty: 240 0RF aspirin 325 mg Tablet 325 mg PO BID 42 Days Qty: 84 0RF Continued lisinopril 10 mg tablet 10 mg PO DAILY Qty: 30 3RF atorvastatin 20 mg tablet 20 mg PO DAILY Qty: 30 5RF celecoxib 200 mg capsule 200 mg PO BID PRN (Reason: Pain) 0RF tadalafil 20 mg tablet 1 tab PO NEEDED PRN (Reason: Sexual Activity) 0RF levothyroxine 150 mcg tablet 150 mcg PO DAILY Qty: 30 3RF Discontinued acetaminophen 500 mg Tablet 1,000 mg PO QID PRN (Reason: Pain) 0RF Discharge Orders: Discharge Order (Routine); Ordered 11/06/21 Ordered By: Julee Flowers Diet: regular diet Activity on Discharge: Use cane or walker Stand Alone Forms: Patient Portal Discharge page Care Plan Goals: Restore function of joint Health Concerns: none Plan of Treatment: Physical Therapy for Total knee arthroplasty: WBAT, gait training, ROM 0-12, quad strength * Limit stair climbing * No showering, no tub bath-keep dressing clean, dry and intact * No driving x6 weeks * Continue Aspirin twice a day x 6 weeks * Follow up with [facility] Orthopedics in 2 weeks: * --you will also have your first out patient PT eval on the day of your post op appt-so please plan on being in the office that day for an extended period of time. Assessment: Physical Therapy Pain management DVT prophylaxis Discharge Date/Time: 11/06/21 13:37
[2021-11-06] MEDS: HYDROmorphone HCl 1 MG/ML SYRINGE 0.25 MG IVPUSH (09:45)
--- NOTE | 2021-11-06 10:15 | MHC.CM.PN ---
nurse director of casework department note electronic medical record reviwed along with case discussed with staff nurse and with patient / discharge plan s/p l-tka home on asa with new referral to the [facility] for home physical therapy transportation family pcp dr tenisha juarez, all discharge paperwork completed
== END 2021-11-06 13:37 | disposition home health service (06) | DRG 302 ==
LOC: HO.SSSA 07:32 → HO.S3 16:44
PROVIDERS: Physician Assistant; Admitting Provider Orthopaedic Surgery; PCP Internal Medicine; Visit Provider Orthopaedic Surgery
PROC: 0SRD0JA Replacement of Left Knee Joint with Synthetic Substitute, Uncemented, Open Approach (ICD-10-PCS; CPT 27447; principal; 2021-11-04 10:10)
DX: M17.12 Unilateral primary osteoarthritis, left knee (principal); E89.0 Postprocedural hypothyroidism; E03.9 Hypothyroidism, unspecified; Z79.899 Other long term (current) drug therapy
CPT/HCPCS: 36415; 73560; 80048; 85025; 86850; 86900; 86901; 87635; 87640; 87641; 88305; 88311; 93005; 97110; 97116; 97162; C1776; J0690; J1100; J1170; J2250; J2405

== ENCOUNTER → 2021-11-13 09:34 | Outpatient (BNVA) | payer BC, SELFPAY | PROVIDERS: PCP Internal Medicine; Visit Provider Orthopaedic Surgery | DX: Z13.89 Encounter for screening for other disorder (principal) ==

== ENCOUNTER → 2021-11-20 11:26 | Outpatient (BNVA) | payer BC, SELFPAY | PROVIDERS: Visit Provider Physician Assistant | DX: Z13.89 Encounter for screening for other disorder (principal) ==

== ENCOUNTER → 2021-12-18 10:24 | Outpatient (BNVA) | payer BC, SELFPAY | PROVIDERS: Visit Provider Physician Assistant | DX: Z96.659 Presence of unspecified artificial knee joint (principal) ==

== ENCOUNTER 2021-12-25 11:00 | Outpatient (RCR) | payer BC, SELFPAY ==
--- NOTE | 2021-11-20 12:11 | MHC.PT.EP ---
[facility] [place] Office [place] Office [place] Office [address] Olesya Curtis [address] [phone] F: [phone] F: [phone] F: [phone] F: [phone] Physical Therapy Plan of Care Date of Evaluation: Date of Surgery: 11/04/21 Diagnosis: L TKA Assessment: pt presents to physical therapy evaluation at orthopedic office for first post-operative visit following L TKA on 11/04/21. pt presents to physical therapy with pain, decreased range of motion, decreased strength, impaired functional mobility, impaired postural awareness, and gait deviations. pt is a good candidate for skilled PT due to age, potential remediation of impairments, typical disease/condition progression and prognosis, comorbidities, and motivation. pt would benefit from tailored strengthening and stretching exercise program, functional training, gait training, postural re-training, neuromuscular re-education, modalities as needed for pain, equipment safety demonstration. Frequency and Duration: The patient will be seen 2x/wk for 8 wks Short Term Goals: Pt will be I w/ HEP and symptom self-management to promote self-management of post-operative status. Pt will improve _ knee extension to _ degrees to normalize heel strike at initial contact w/ involved LE to reduce impairments w/ gait using LRAD. English Professor Goals: Pt will report a statistically significant improvement in self-reported outcome measure, _, to promote return to PLOF. Pt will ascend/descend _ stairs mod I w/ LRAD to promote access to primary living spaces. Treatment Plan: Modalities to reduce pain, spasms and effusion. Manual therapy to restore motion and function. Therapeutic exercise to improve strength and flexibility. Neuromuscular re-education for posture and balance. Therapeutic activities to return to functional activities of daily living. Electronically signed by: Kalli Fisher PT, DPT Please sign and return to therapist. Thank you for your referral.
--- NOTE | 2021-12-31 11:52 | MHC.PT.DC ---
[facility] [place] Office [place] Office [place] Office [address] Olesya Curtis [address] [phone] F: [phone] F: [phone] F: [phone] F: [phone] Physical Therapy Discharge Report Diagnosis: L TKA Date of Surgery: 11/04/21 Date of Evaluation: 11/20/21 Date of Discharge: 12/31/21 Treatments to Date: 8 Cancellations to Date: 0 No Shows to Date: 0 Discharge Status: Improved Function Independent with HEP Patient Elected to Stop Discharge Summary: Pt missed last visit and when called on phone, states he feels ready for DC and is able to bike, ambulate up.down stairs. He will continue with I HEP and D/c at this time. Electronically signed by: Sarah Combs PT Please sign and return to therapist. Thank you for your referral.
== END 2021-12-31 11:52 | disposition home or self-care (01) ==
LOC: HO.PT 11:00
PROVIDERS: Visit Provider Physician Assistant
DX: Z96.652 Presence of left artificial knee joint (principal)
CPT/HCPCS: 97110; 97161; 97530

== ENCOUNTER 2022-01-29 07:22 | Outpatient (REF) | payer BC, SELFPAY ==
--- NOTE | ~2022-01-29 | XR_ITS ---
EXAMINATION: AP BILATERAL KNEE AND LEFT KNEE. CLINICAL INFORMATION: Pain in knee. COMPARISON: None. TECHNIQUE: AP bilateral knee 1 view and left knee 2 views. FINDINGS: AP BILATERAL KNEE: There is a total bilateral knee arthroplasty with prosthetic components in satisfactory alignment. No loose bodies or bony erosive changes. No periprosthetic fractures. LEFT KNEE: There is moderate soft tissue swelling seen in the anterior left knee joint. Minimal joint effusion is suspected. No loose bodies or fracture seen. XR/XR knee LT 2V IMPRESSION: Moderate left anterior knee soft tissue swelling. Total bilateral knee prosthesis in satisfactory alignment.
--- NOTE | ~2022-01-29 | XR_ITS ---
EXAMINATION: AP BILATERAL KNEE AND LEFT KNEE. CLINICAL INFORMATION: Pain in knee. COMPARISON: None. TECHNIQUE: AP bilateral knee 1 view and left knee 2 views. FINDINGS: AP BILATERAL KNEE: There is a total bilateral knee arthroplasty with prosthetic components in satisfactory alignment. No loose bodies or bony erosive changes. No periprosthetic fractures. LEFT KNEE: There is moderate soft tissue swelling seen in the anterior left knee joint. Minimal joint effusion is suspected. No loose bodies or fracture seen. XR/XR knee standing BI IMPRESSION: Moderate left anterior knee soft tissue swelling. Total bilateral knee prosthesis in satisfactory alignment.
== END 2022-01-29 07:23 | disposition home or self-care (01) ==
LOC: HO.HOSX 07:22
PROVIDERS: Visit Provider Orthopaedic Surgery
DX: M25.562 Pain in left knee (principal)
CPT/HCPCS: 73560; 73565

== ENCOUNTER 2022-07-09 12:04 | Outpatient (REF) | payer BC, SELFPAY | END 2022-07-09 12:05 | disposition home or self-care (01) | LOC: HO.HMGCLDS 12:04 | PROVIDERS: PCP Internal Medicine; Visit Provider Internal Medicine | DX: E89.0 Postprocedural hypothyroidism (principal) | CPT/HCPCS: 36415; 84439; 84443 ==

== ENCOUNTER 2023-01-13 12:07 | Outpatient (REF) | payer BC, SELFPAY ==
[2023-01-13 14:39] LABS: Alanine Aminotransferase 24 U/L (0-40); Anion Gap 13 (12-20); Aspartate Amino Transferase 37 U/L (5-37); Blood Urea Nitrogen 20 mg/dL (9-16); Calcium 9.1 mg/dL (8.4-10.2); Carbon Dioxide 28 mmol/L (22-29); Chloride 107 mmol/L (96-108); Cholesterol 169 mg/dL; Estimated Glomerular Filt Rate > 60; Glucose Fasting 94 mg/dL (60-99); HDL Cholesterol 78 mg/dL; LDL Cholesterol Calculated 75 mg/dl; Potassium 4.4 mmol/L (3.3-5.1); Sodium 144 mmol/L (135-145); Triglycerides 80 mg/dL
[2023-01-13 14:41] LABS: PSA,Total (Free>4and<10) 0.65 ng/mL (0.00-4.00)
[2023-01-13 14:44] LABS: Free T4 (Free Thyroxine) 0.76 ng/dL (0.71-1.85); Thyroid Stimulating Hormone 16.33 uIU/mL (0.32-4.0)
== END 2023-01-13 12:08 | disposition home or self-care (01) ==
LOC: HO.HMGCLDS 12:07
PROVIDERS: PCP Internal Medicine; Visit Provider Internal Medicine
DX: Z00.01 Encounter for general adult medical examination with abnormal findings (principal); E66.3 Overweight; E78.5 Hyperlipidemia, unspecified; E89.0 Postprocedural hypothyroidism; I10 Essential (primary) hypertension; Z12.5 Encounter for screening for malignant neoplasm of prostate; Z80.42 Family history of malignant neoplasm of prostate
CPT/HCPCS: 36415; 80048; 80061; 84153; 84439; 84443; 84450; 84460

== ENCOUNTER 2023-03-12 09:39 | Outpatient (REF) | payer BC, SELFPAY ==
[2023-03-12 12:29] LABS: Free T4 (Free Thyroxine) 1.06 ng/dL (0.71-1.85); Thyroid Stimulating Hormone 4.44 uIU/mL (0.32-4.0)
== END 2023-03-12 09:40 | disposition home or self-care (01) ==
LOC: HO.HMGCLDS 09:39
PROVIDERS: PCP Internal Medicine; Visit Provider Internal Medicine
DX: E89.0 Postprocedural hypothyroidism (principal)
CPT/HCPCS: 36415; 84439; 84443

== ENCOUNTER 2023-03-17 10:40 | Outpatient (AMB) | payer BC, SELFPAY ==
[2023-03-17 10:42] VITALS: BP 142/80; PULSE 62; O2SAT 98
--- NOTE | 2023-03-17 10:42 | A.OFFPC_ITS ---
Vital Signs 03/17/23 10:42 Height 5 ft 6 in Weight 186 lb BMI 30.0 BP 142/80 H Blood Pressure Location Lt brachial Position Sitting Pulse 62 Pulse Source Pulse Oximeter Pulse Oximetry (%) 98 Intake Visit Reasons: 2m follow up thyroid Intake Note: pt is here for f/u thyroid Allergies No Known Allergies [No Known Allergies*] Allergy (Verified 07/13/23 08:16) Medication List - Last Reconciled 03/17/23 by Cara Baugh MD acetaminophen 650 mg (2 x 325 mg) PO Q6H PRN 30 days atorvastatin 20 mg PO DAILY epinephrine 0.3 mL IM ONCE PRN levothyroxine 175 mcg PO DAILY tadalafil 1 tab PO NEEDED PRN Tobacco use date assessed: 01/14/23 Dental Screening Dental Screen Date: 03/17/23 Did you have a dental visit in the last 12 months?: Yes Did you have a dental problem in the last 6 months where you did not have access to dental care?: No Was dental information given to patient?: Patient has dentist HPI 2m follow up thyroid HPI Details 58-year-old male with hypothyroidism, he re today for follow-up. His currently taking levothyroxine 175 mcg once a day, has been feeling well on this current dose. Recent labs showed thyroid levels are within normal limits. Has been complaining intermittent episodes of bright red blood per rectum accompanied by occasional mucoid discharge. Denies any constipation, has history of hemorrhoidectomy in the past status post rubber-band ligation. [facility] Medical History Bleeding hemorrhoids Annual visit for general adult medical examination with abnormal findings Sinus bradycardia Hx of angioedema Sleeping difficulty Overweight (BMI 25.0-29.9) Osteoarthritis Mixed anxiety and depressive disorder Erectile dysfunction Postablative hypothyroidism Family history of prostate cancer in father Lumbar disc herniation Dyslipidemia Essential hypertension Hypothyroid Hyperlipemia Surgical History Hx of colonoscopy History of circumcision History of total right knee replacement Family History Mother GERD (gastroesophageal reflux disease) Breast cancer Father HTN (hypertension) CVA (cerebral vascular accident) Prostate cancer Social History Household Members: Family Household Members Other:: father Housing: House Are you a primary behavioral health care coordinator to a significant other at home: No Do you presently have visiting nurse or other home services: No Alcohol intake: current Alcohol intake frequency: a few times a month Patient Tobacco Use Status: Never used Tobacco e-Cigarette/Vaping Use: Never Used service: No Current occupational status: employed 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 Dannie Forbes, Gita Dorman, Hammad Giron and colleagues, with an educational priscila from [employer]. Review of Systems Const Denies fever(s) ENT Reports no additional complaints Card Denies chest pain and Denies dyspnea Resp Denies cough and Denies dyspnea GI Reports hematochezia and Denies change in bowel habits Denies hematuria and Denies difficulty urinating Musc Denies back pain Neuro Denies focal weakness and Denies convulsions Psych Denies depression and Denies mood swings Rory/Lymph Reports as per HPI Physical exam (Primary Care) Vital Signs: Last Vital Signs Pulse 62 03/17/23 10:42 BP 142/80 H 03/17/23 10:42 Pulse Ox 98 03/17/23 10:42 BMI result Body Mass Index 30.0 Tobacco/Smoking Status: Tobacco use Status Tobacco use date assessed 01/14/23 03/17/23 10:43 Patient Tobacco Use Status Never used Tobacco 03/17/23 10:43 e-Cigarette/Vaping Use Never Used 03/17/23 10:43 Thrive Assessment: Date of Thrive Assessment Date Thrive assessed 09/24/21 03/17/23 10:43 Const General: no acute distress Nutritional Appearance: overweight Orientation/consciousness: patient oriented x3 HENMT Face and sinus: Yes face symmetric Mouth: Normal oral and palatal mucosa present and moist mucous membranes Eyes General: appearance normal, both eyes and all related structures Neck Neck: Yes full ROM, Yes no lymphadenopathy and Yes supple Resp Auscultation: clear to auscultation bilaterally Cardio Other: S1-S2 present , bradycardic,z regular rhythm GI Inspection: Yes normal to inspection Palpation (GI): Soft to palpation, nontender, no guarding and no masses Auscultation: normal bowel sounds Rectal Exam - Male: Yes External hemorrhoid(s) present (Large prolapsing external hemorrhoids, no active bleeding) Neuro General: patient oriented x3, gait normal, tone normal, moves all extremities and no focal motor deficits Gait exam (Neuro): Normal gait present Extrem General: Yes full ROM, Yes no joint enlargement, Yes no clubbing, cyanosis or edema and Yes normal gait Assessment and Plan Assessment & Plan (1) Hemorrhoids: Comment: avoid straining high fiber diet Code(s): K64.9 - Unspecified hemorrhoids Qualifiers: Hemorrhoid type: second degree Qualified Code(s): K64.1 - Second degree hemorrhoids Plan: Consult obtained with Dr. Oakes (2) Postablative hypothyroidism: Code(s): E89.0 - Postprocedural hypothyroidism Plan: Thyroid levels are within normal limits, continue with current dose of levothyroxine 175 mcg daily Orders: Referrals General Surgery Referral K64.9 - Unspecified hemorrhoids Coding Level of Care Code Est Pt Level 3 (49094) Diagnoses Grade II hemorrhoids K64.1 Hemorrhoid type: second degree Postablative hypothyroidism E89.0
== END 2023-03-17 13:15 | disposition home or self-care (01) ==
PROVIDERS: PCP Internal Medicine; Visit Provider Internal Medicine
DX: K64.1 Second degree hemorrhoids (principal); E89.0 Postprocedural hypothyroidism
CPT/HCPCS: 99213

== ENCOUNTER 2023-04-07 09:44 | Outpatient (AMB) | payer BC, SELFPAY ==
--- NOTE | 2023-04-07 09:56 | MHC.OFFVIS ---
Intake Vital Signs 04/07/23 10:01 Height 5 ft 6 in Weight 187 lb BMI 30.2 Intake Visit Reasons: Unspecified hemorrhoids Intake Note: This patient presents for an assessment for hemorrhoids. Patient c/o; report occasional rectal bleeding and pain with bowel movements, denies constipation. Psychology Technician Required: No Accompanied by: Self / Same As Patient Allergies No Known Allergies [No Known Allergies*] Allergy (Verified 04/07/23 10:01) Medication List - Last Reconciled 04/07/23 by Dru Oakes MD acetaminophen 650 mg (2 x 325 mg) PO Q6H PRN 30 days atorvastatin 20 mg PO DAILY epinephrine 0.3 mL IM ONCE PRN levothyroxine 175 mcg PO DAILY tadalafil 1 tab PO NEEDED PRN HPI Unspecified hemorrhoids HPI Details 57-year-old male referred for hemorrhoid issues. He says that he has had hemorrhoids for so many years now. He says he has a history of rubber band ligation in the past He does state that for the past 5 years, he has noted periodic bleeding with this hemorrhoids. Furthermore, he says that he would get swollen especially with bowel movements. He would have this mucousy discharge frequently as well as his hemorrhoids are always ?out?. He denies being constipated however. [facility] Medical History (Updated 04/07/23 @ 10:09 by Dru Oakes MD) Bleeding hemorrhoids Annual visit for general adult medical examination with abnormal findings Sinus bradycardia Hx of angioedema Sleeping difficulty Overweight (BMI 25.0-29.9) Osteoarthritis Mixed anxiety and depressive disorder Erectile dysfunction Postablative hypothyroidism Family history of prostate cancer in father Lumbar disc herniation Dyslipidemia Essential hypertension Hypothyroid Hyperlipemia Surgical History Hx of colonoscopy History of circumcision History of total right knee replacement Family History Mother GERD (gastroesophageal reflux disease) Breast cancer Father HTN (hypertension) CVA (cerebral vascular accident) Prostate cancer Social History Household Members: Family Household Members Other:: father Housing: House Are you a primary child day care center worker to a significant other at home: No Do you presently have visiting nurse or other home services: No Alcohol intake: current Alcohol intake frequency: a few times a month Patient Tobacco Use Status: Never used Tobacco e-Cigarette/Vaping Use: Never Used service: No Current occupational status: employed 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 [employer] Cognitive needs: No Hearing needs: No Vision needs: Yes Review of Systems Const Denies chills and Denies fever(s) Card Denies chest pain, Denies dyspnea and Denies dyspnea on exertion Resp Denies cough, Denies dyspnea and Denies dyspnea on exertion GI Reports hematochezia and Denies change in bowel habits Denies hematuria and Denies difficulty urinating Musc Denies back pain and Denies limited range of motion Neuro Denies focal weakness and Denies convulsions Psych Denies depression and Denies mood swings Physical Exam Vital Signs: BMI result Body Mass Index 30.2 Const General: comfortable and no acute distress Orientation/consciousness: patient oriented x3 Neck Neck: Yes no lymphadenopathy Resp Auscultation: clear to auscultation bilaterally Cardio Rhythm: regular rhythm GI Other: Large hemorrhoids internal external with significant prolapse, anoscopy done Palpation (GI): Soft to palpation, nontender and no guarding Neuro General: patient oriented x3 Office Procedures Anoscopy He was in samantha-knife position. The anoscope was gently inserted. A full exam in a through the anal canal was done. He had internal external hemorrhoids, mostly in the posterior area and these are note did to easily prolapse. There were no other lesions. The hemorrhoids seemed to bleed easily. There was no induration on digital exam. There were no ulcerations or fissure [id number] Assessment & Plan Assessment & Plan (1) Bleeding hemorrhoids: Code(s): K64.9 - Unspecified hemorrhoids Plan: He has large internal external margins with pain, bleeding and prolapse. I explained to him the option of proceeding with hemorrhoidectomy. I discussed the technique of this procedure with exam under anesthesia. I reviewed the risks including but not limited to bleeding, infections, severe postop pain, poor healing, as well as the benefits and alternatives. I also told him that in view of the size of his hemorrhoids, may not be able to remove all of these large columns in 1 setting He says he understands I also explained to him what to expect postoperatively specially with regards to care. He says that he would like to think about it before he makes a decision. He will call me once he decides to proceed. Coding Level of Care Code New Pt Level 3 (26789) Diagnoses Bleeding hemorrhoids K64.9 CPT Codes Details - CPT: 24890-[id number] ([id number])
[2023-04-07 10:01] VITALS: BMI 30.2
== END 2023-04-07 10:16 | disposition home or self-care (01) ==
PROVIDERS: PCP Internal Medicine; Referring Provider Internal Medicine; Visit Provider Surgery
DX: K64.9 Unspecified hemorrhoids (principal)
CPT/HCPCS: 46600; 99203

== ENCOUNTER → 2023-04-07 09:44 | Outpatient (BNVA) | payer BC, SELFPAY | PROVIDERS: PCP Internal Medicine; Referring Provider Internal Medicine; Visit Provider Surgery | DX: K64.8 Other hemorrhoids (principal) | CPT/HCPCS: 46600 ==

== ENCOUNTER 2024-02-01 09:09 | Outpatient (AMB) | payer BC, SELFPAY ==
--- NOTE | 2024-02-01 09:18 | A.OFFPC_ITS ---
Vital Signs 02/01/24 09:38 Height 5 ft 6 in Weight 185 lb BMI 29.9 BP 132/80 Blood Pressure Location Lt brachial Position Sitting Pulse 52 Pulse Source Pulse Oximeter Pulse Oximetry (%) 98 Oxygen Delivery Method Room Air Intake Visit Reasons: PE Intake Note: Pt is here today for his PE: Colonoscopy 11/13/20 Allergies No Known Allergies [No Known Allergies*] Allergy (Verified 02/01/24 09:52) Medication List - Last Reconciled 02/01/24 by Cara Baugh MD acetaminophen 650 mg (2 x 325 mg) PO Q6H PRN 30 days atorvastatin 20 mg PO DAILY epinephrine 0.3 mL IM ONCE PRN levothyroxine 175 mcg PO DAILY tadalafil 1 tab PO NEEDED PRN Tobacco use date assessed: 02/01/24 Dental Screening Dental Screen Date: 02/01/24 Did you have a dental visit in the last 12 months?: Yes Did you have a dental problem in the last 6 months where you did not have access to dental care?: No Was dental information given to patient?: Patient has dentist HPI PE HPI Details 58-year-old male with history of hyperli pidemia, postablative hypothyroidism, osteoarthritis, with mixed anxiety and depression, here today for his physical exam. He is up-to-date with his screening colonoscopy done by Dr. Moore in 2020, due for recheck in 2030. He was noted to be anemic on last labs done 2021, currently not complaining of any headache, no dizziness, no lightheadedness no chest pain or shortness of breath.. Has been compliant with taking his medications, and tries to follow recommended diet. [facility] Medical History (Updated 02/01/24 @ 17:10 by Cara Baugh MD) Bleeding hemorrhoids Annual visit for general adult medical examination with abnormal findings Sinus bradycardia Hx of angioedema Sleeping difficulty Overweight (BMI 25.0-29.9) Osteoarthritis Mixed anxiety and depressive disorder Erectile dysfunction Postablative hypothyroidism Family history of prostate cancer in father Lumbar disc herniation Dyslipidemia Essential hypertension Hyperlipemia Surgical History Hx of colonoscopy History of circumcision History of total right knee replacement Family History Mother GERD (gastroesophageal reflux disease) Breast cancer Father HTN (hypertension) CVA (cerebral vascular accident) Prostate cancer Social History Household Members: Family Household Members Other:: father Housing: House Are you a primary intensive care anaesthetist to a significant other at home: No Do you presently have visiting nurse or other home services: No Alcohol intake: current Alcohol intake frequency: a few times a month Patient Tobacco Use Status: Never used Tobacco e-Cigarette/Vaping Use: Never Used service: No Current occupational status: employed 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 1. Little interest or pleasure in doing things: not at all 2. Feeling down, depressed, or hopeless: not at all 3. Trouble falling or staying asleep, or sleeping too much: several days 4. Feeling tired or having little energy: not at all 5. Poor appetite or overeating: not at all 6. Feeling bad about yourself - or that you are a failure or have let yourself or your family down: several days 7. Trouble concentrating on things, such as reading the newspaper or watching television: not at all 8. Moving or speaking so slowly that other people could have noticed. Or the opposite - being so fidgety or restless that you have been moving around a lot more than usual: not at all 9. Thoughts that you would be better off or of hurting yourself in some way: not at all Total score: 2 Depression Screening Interpretation: Negative Depression Screening Done: Yes 79731 - PHQ-9 Billing: Yes Source: Developed by Drs. Dannie Forbes, Gita Dormna, Hammad Giron and colleagues, with an educational priscila from [employer]. Thrive Questionnaire Date Thrive assessed: 02/01/24 I am a: Patient What is your living situation today?: I have a steady place to live Within the past 12 months, did the food you bought not last and you didn't have the money to get more?: Never true Within the past 12 months, did you worry whether your food would run out before you got money to buy more?: Never true Do you have trouble paying for medicines?: No Do you have trouble getting transportation to medical appointments?: No Do you have trouble paying your heating and electricity bill?: No Do you have trouble taking care of your child, family member or friend?: No Do you have trouble with day-to-day activities such as bathing, preparing meals, shopping, managing finances, etc.?: No Are you currently unemployed and looking for a job?: No Are you interested in more education?: No THRIVE Score: 0 AUDIT C Alcohol Use Questionnaire (AUDIT-C) 1. How often do you have a drink containing alcohol?: Monthly or less 2. How many drinks containing alcohol do you have on a typical day when you are drinking?: 1 or 2 3. How often do you have six or more drinks on one occasion?: Never Total Score: 1 REMY-7 AMB Questionnaire REMY-7 Date REMY - 7 assessed: 02/01/24 Feeling nervous, anxious, or on edge: 0 = Not at all Not being able to stop or control worryin = Several days Worrying too much about different things: 1 = Several days Trouble relaxin = Not at all Being so restless that it is hard to sit still: 0 = Not at all Becoming easily annoyed or irritable: 0 = Not at all Feeling afraid as if something awful might happen: 0 = Not at all Total REMY-7 score (0-4 normal; 5-9 mild; 10-14 moderate; 15-21 severe): 2 Source: Developed by Drs. Dannie Forbes, Gita Dorman, Hammad Giron and colleagues, with an educational priscila from [employer]. REMY-7 Assessment Billing REMY-7 Assessment Tool: REMY-7 Assessment 67716 Review of Systems Const Denies fever(s) Eyes Reports no additional complaints ENT Reports no additional complaints Card Denies chest pain and Denies dyspnea Resp Denies cough and Denies dyspnea GI Reports hematochezia and Denies change in bowel habits Denies hematuria and Denies difficulty urinating Musc Denies back pain and Reports arthralgias (Knees) Skin/Breast Denies rash Neuro Denies focal weakness and Denies convulsions Psych Denies depression and Denies mood swings Endo Reports no additional complaints Rory/Lymph Reports no additional complaints Aller/Immun Reports no additional complaints Physical exam (Primary Care) Vital Signs: Last Vital Signs Pulse 52 02/01/24 09:38 BP 132/80 02/01/24 09:38 Pulse Ox 98 02/01/24 09:38 Oxygen Delivery Method Room Air 02/01/24 09:38 BMI result Body Mass Index 29.9 Tobacco/Smoking Status: Tobacco use Status Tobacco use date assessed 02/01/24 02/01/24 09:42 Patient Tobacco Use Status Never used Tobacco 02/01/24 09:19 e-Cigarette/Vaping Use Never Used 02/01/24 09:19 PHQ-9: PHQ-9 Score PHQ-9: Total score 2 02/07/24 02:11 Depression Screening Interpretation: Negative Thrive Assessment: Date of Thrive Assessment Date Thrive assessed 02/01/24 02/01/24 10:15 Const General: no acute distress Nutritional Appearance: overweight Orientation/consciousness: patient oriented x3 HENMT Face and sinus: Yes face symmetric Mouth: Normal oral and palatal mucosa present and moist mucous membranes Eyes General: appearance normal, both eyes and all related structures Neck Neck: Yes full ROM, Yes no lymphadenopathy and Yes supple Resp Auscultation: clear to auscultation bilaterally Cardio Other: S1-S2 present , bradycardic,z regular rhythm GI Inspection: Yes normal to inspection Palpation (GI): Soft to palpation, nontender, no guarding and no masses Auscultation: normal bowel sounds Back/Spine/Pelvis Back: No back tenderness Skin General skin exam: no rashes or lesions noted Neuro General: patient oriented x3, gait normal, tone normal, moves all extremities and no focal motor deficits Gait exam (Neuro): Normal gait present Extrem General: Yes full ROM, Yes no joint enlargement, Yes no clubbing, cyanosis or edema and Yes normal gait Psych Appearance: grossly normal and well kempt Mental Status: mental status grossly normal Speech and movement: Normal speech and movement present Affect: normal affect Thought process: Normal thought process present Thought content: Normal thought content present Assessment and Plan Assessment & Plan (1) Annual visit for general adult medical examination with abnormal findings: Code(s): Z00.01 - Encounter for general adult medical examination with abnormal findings Plan: Will check appropriate labs. Continue dental visit every 6 months and regular eye exams, at least every 2 years. Take adequate calcium in diet and vitamin-D 3 at 2000 IU per cap once a day, in addition to weight-bearing exercises to help maintain good muscle tone and weight control. Instructed to do testicular exam check for any mass. Up-to-date with his screening colonoscopy up-to-date with his vaccinations but does not want to get a COVID booster, reminded to get his yearly flu vaccine (2) Osteoarthritis of left knee: Code(s): M17.12 - Unilateral primary osteoarthritis, left knee Qualifiers: Osteoarthritis type: primary Qualified Code(s): M17.12 - Unilateral primary osteoarthritis, left knee Plan: Takes acetaminophen as needed occasionally uses a cane when ambulating, handicap parking placard application completed today (3) Essential hypertension: Code(s): I10 - Essential (primary) hypertension Plan: Continue with adherence to low-salt diet, monitor blood pressure regularly, goal is less than 130/80 (4) Dyslipidemia: Code(s): E78.5 - Hyperlipidemia, unspecified Plan: Fasting lipid panel ordered (5) Postablative hypothyroidism: Code(s): E89.0 - Postprocedural hypothyroidism Plan: Will check thyroid levels, currently on levothyroxine 175 mcg daily, no complaints at present time (6) Hx of angioedema: Code(s): Z87.898 - Personal history of other specified conditions Plan: Has EpiPen to use as needed (7) Encounter for counseling regarding advance directives: Code(s): Z71.89 - Other specified counseling Plan: Initiated the conversation about Advanced Directives. Advanced Directives help patients prepare for current and future decisions about their medical treatment and place of care. Discussed with patient that it is a process where a patients current condition and prognosis are reviewed, their wishes for information regarding their illness are elicited, and likely medical dilemmas are presented and options discussed. Healthcare proxy form completed today The form can be amended as needed, reviewed yearly and make changes as needed (8) Family history of prostate cancer in father: Code(s): Z80.42 - Family history of malignant neoplasm of prostate Plan: PSA level ordered today Orders: Orders Aspartate Amino Transferase 02/01/24 E78.5 - Hyperlipidemia, unspecified, E89.0 - Postprocedural hypothyroidism, I10 - Essential (primary) hypertension, M17.12 - Unilateral primary osteoarthritis, left knee, Z00.01 - Encounter for general adult medical examination with abnormal findings, Z71.89 - Other specified counseling, Z87.898 - Personal history of other specified conditions Lipid Panel 02/01/24 E78.5 - Hyperlipidemia, unspecified, E89.0 - Postprocedural hypothyroidism, I10 - Essential (primary) hypertension, M17.12 - Unilateral primary osteoarthritis, left knee, Z00.01 - Encounter for general adult medical examination with abnormal findings, Z71.89 - Other specified counseling, Z87.898 - Personal history of other specified conditions Basic Metabolic Panel Fasting 02/01/24 E78.5 - Hyperlipidemia, unspecified, E89.0 - Postprocedural hypothyroidism, I10 - Essential (primary) hypertension, M17.12 - Unilateral primary osteoarthritis, left knee, Z00.01 - Encounter for general adult medical examination with abnormal findings, Z71.89 - Other specified counseling, Z87.898 - Personal history of other specified conditions Vitamin D 25-OH Total 02/01/24 E78.5 - Hyperlipidemia, unspecified, E89.0 - Postprocedural hypothyroidism, I10 - Essential (primary) hypertension, M17.12 - Unilateral primary osteoarthritis, left knee, Z00.01 - Encounter for general adult medical examination with abnormal findings, Z71.89 - Other specified counseling, Z87.898 - Personal history of other specified conditions Alanine Aminotransferase 02/01/24 E78.5 - Hyperlipidemia, unspecified, E89.0 - Postprocedural hypothyroidism, I10 - Essential (primary) hypertension, M17.12 - Unilateral primary osteoarthritis, left knee, Z00.01 - Encounter for general adult medical examination with abnormal findings, Z71.89 - Other specified counseling, Z87.898 - Personal history of other specified conditions Thyroid Stimulating Hormone 02/01/24 E78.5 - Hyperlipidemia, unspecified, E89.0 - Postprocedural hypothyroidism, I10 - Essential (primary) hypertension, M17.12 - Unilateral primary osteoarthritis, left knee, Z00.01 - Encounter for general adult medical examination with abnormal findings, Z71.89 - Other specified counseling, Z87.898 - Personal history of other specified conditions Free T4 (Free Thyroxine) 02/01/24 E78.5 - Hyperlipidemia, unspecified, E89.0 - Postprocedural hypothyroidism, I10 - Essential (primary) hypertension, M17.12 - Unilateral primary osteoarthritis, left knee, Z00.01 - Encounter for general adult medical examination with abnormal findings, Z71.89 - Other specified counseling, Z87.898 - Personal history of other specified conditions PSA,Total (Free>4and<10) 02/01/24 Z80.42 - Family history of malignant neoplasm of prostate Medications: Refilled atorvastatin 20 mg PO DAILY 90 tabs 1RF E78.5 - Hyperlipidemia, unspecified levothyroxine 175 mcg PO DAILY 90 tabs 1RF Coding Level of Care Code Est Pt Prev Care 40-64y(75116) Diagnoses Annual visit for general adult medical examination with abnormal findings Z00.01 Primary osteoarthritis of left knee M17.12 Osteoarthritis type: primary Essential hypertension I10 Dyslipidemia E78.5 Postablative hypothyroidism E89.0 Hx of angioedema Z87.898 Encounter for counseling regarding advance directives Z71.89 Family history of prostate cancer in father Z80.42 Additional Codes REMY-7 Assessment Billing - REMY-7 Assessment Tool: REMY-7 Assessment 33101 ([id number])
[2024-02-01 09:38] VITALS: BP 132/80; PULSE 52; O2SAT 98; BMI 29.9
== END 2024-02-01 10:19 | disposition home or self-care (01) ==
PROVIDERS: PCP Internal Medicine; Visit Provider Internal Medicine
DX: Z00.00 Encounter for general adult medical examination without abnormal findings (principal); M17.12 Unilateral primary osteoarthritis, left knee; I10 Essential (primary) hypertension; E78.5 Hyperlipidemia, unspecified; E89.0 Postprocedural hypothyroidism; Z87.898 Personal history of other specified conditions; Z71.89 Other specified counseling; Z80.42 Family history of malignant neoplasm of prostate
CPT/HCPCS: 99396

== ENCOUNTER 2024-02-01 10:21 | Outpatient (REF) | payer BC, SELFPAY ==
[2024-02-01 13:33] LABS: Alanine Aminotransferase 22 U/L (0-40); Anion Gap 10 (12-20); Aspartate Amino Transferase 28 U/L (5-37); Blood Urea Nitrogen 21 mg/dL (9-16); Calcium 9.4 mg/dL (8.4-10.2); Carbon Dioxide 30 mmol/L (22-29); Chloride 106 mmol/L (96-108); Cholesterol 211 mg/dL (<200); Estimated Glomerular Filt Rate > 60; Glucose Fasting 99 mg/dL (60-99); HDL Cholesterol 79 mg/dL (>40); LDL Cholesterol Calculated 120 mg/dL (<100); Potassium 4.4 mmol/L (3.3-5.1); Sodium 142 mmol/L (135-145); Triglycerides 64 mg/dL (<150)
[2024-02-01 13:50] LABS: Free T4 (Free Thyroxine) 0.96 ng/dL (0.71-1.85); Thyroid Stimulating Hormone 11.56 uIU/mL (0.32-4.0); Vitamin D 25-OH Total 28.9 ng/mL (>30)
== END 2024-02-01 10:22 | disposition home or self-care (01) ==
LOC: HO.HMGCLDS 10:21
PROVIDERS: PCP Internal Medicine; Visit Provider Internal Medicine
DX: Z00.01 Encounter for general adult medical examination with abnormal findings (principal); Z87.898 Personal history of other specified conditions; M17.12 Unilateral primary osteoarthritis, left knee; E78.5 Hyperlipidemia, unspecified; I10 Essential (primary) hypertension; E89.0 Postprocedural hypothyroidism; Z71.89 Other specified counseling; Z12.5 Encounter for screening for malignant neoplasm of prostate
CPT/HCPCS: 36415; 80048; 80061; 82306; 84153; 84439; 84443; 84450; 84460

== ENCOUNTER 2025-03-12 08:58 | Outpatient (REF) | payer BC, SELFPAY ==
--- OUTSIDE RECORDS SUMMARY | 2025-03-12 09:27 | XMS_ITS | Encounter Summary ---
Author Organization [facility] Address [address] [place] [id number] Phone Care Team Providers Care Grind Operator Name Role Phone Unknown, Unknown Primary Care Provider Cory Deutsch MD Primary Care Provider [phone] Reason for Referral * Consultation (Elective) - Closed Specialty Diagnoses / Procedures Referred By Darcy medrano Referred To Contact [facility] Cardiovascular Medicine [address] [place] [address], [address] Floor, [address] [place] [address] Phone: tel: fax: [facility] CARD [id number] Referral ID Status Reason Start Date Expiration Date Visits Re quested Visits Authorized [id number] Closed 05/23/2019 05/23/2020 1 1 Electronically signed by [facility] [place] [place] Admitting, Provider at 05/23/2019 9:35 AM EDT Encounter Details Date Type Department Care Team (Late st Contact Info) Description 05/23/2019 Transcribe Orders [facility] Cardiovascular Medicine [address] [place] [address], [address] Floor, [address] [place] [address] Unknown, Unknown, MD Social History Tobacco Use Types Packs/Day Years Used Date Smoking Tobacco: Never Assessed Sex and Gender Information Value Date Recorded Sex Assigned at Not on file Legal Sex Male 2:17 PM EDT Gender Identity Not on file Sexual Orientation Not on file documented as of this encounter Plan of Treatment Scheduled Referrals Name Type Priority Associated Diagnoses Order Schedule Ambulatory referral to [facility] Cardiology Outpatient Referral Routine Ordered: 05/23/2019 documented as of this encounter Visit Diagnoses Not on filedocumented in this encounter Care Teams Grind Operator Relationship Specialty Start Date End Date Unknown, Unknown, MD PCP - General 05/22/19 07/04/19 Cory Hayes MD [address] [place] [address] Dr [place]yes, JIMMY [id number] PCP - General Internal Medicine 07/05/19 documented as of this encounter Additional Source Comments The information contained in this document represents components of the legal health record. It is not the complete legal health record.[facility]
--- OUTSIDE RECORDS SUMMARY | 2025-03-12 09:27 | XMS_ITS | Clinical Summary ---
Author Organization [facility] Address [address] [place] [address] Phone Care Team Providers Care Nip Wrapper Name Role Phone Cara Baugh MD Primary Care Provider [phone] Allergies No known active allergies Encounters Date Type Department Care Team Description 02/05/2025 2:57 PM EDT - 02/05/2025 2:58 PM EDT Emergency [facility] Emergency [address] [place] [address] Sprain of right ankle, initial encounter (Primary Dx) Discharge Disposition: Home or Self Care from Last 3 Months Social History Tobacco Use Types Packs/Day Years Used Date Smoking Tobacco: Never Assessed Sex and Gender Information Value Date Recorded Sex Assigned at Not on file Legal Sex Male 9:43 PM EST Gender Identity Not on file Sexual Orientation Not on file Last Filed Vital Signs Vital Sign Reading Time Taken Comments Blood Pressure 165/102 02/05/2025 11:41 AM EDT Pulse 58 02/05/2025 11:41 AM EDT Temperature 36.6 C (97.9 F) 02/05/2025 11:41 AM EDT Respiratory Rate 18 02/05/2025 11:41 AM EDT Oxygen Saturation 97% 02/05/2025 11:41 AM EDT Inhaled Oxygen Concentration - - Weight 88.5 kg (195 lb) 02/05/2025 11:41 AM EDT Height 167.6 cm (5' 6 ) 02/05/2025 11:41 AM EDT Body Mass Index 31.47 02/05/2025 11:41 AM EDT Plan of Treatment Health Maintenance Due Date Last Done Comments DTaP,Tdap,and Td Vaccines (1 - Tdap) 1986 Hepatitis B Vaccines (1 of 3 - 19+ 3-dose series) 1986 Pneumococcal Vaccine: 50+ Ye ars (1 of 1 - PCV) 2017 Zoster Vaccines (1 of 2) 2017 Cholesterol Screening (Lipid Panel) 06/27/2022 Colorectal Cancer Screening: Colonoscopy 06/27/2022 HIV Screening 06/27/2022 Hepatitis C Screening 06/27/2022 Social Influencers of Health Screening 06/27/2022 COVID-19 Vaccine (1 - 2023-2 5 season) 2024 Depression Screening 07/26/2024 Influenza Vaccine (#1) 2025 09/16/2020 HIB Vaccines Aged Out No longer eligi ble based on patient's age to complete this topic HPV Vaccines Aged Out No longer eligi ble based on patient's age to complete this topic Hepatitis A Vaccines Aged Out No long er eligible based on patient's age to complete this topic IPV Vaccines Aged Out No longer eligi ble based on patient's age to complete this topic MMR Vaccines Aged Out No longer eligi ble based on patient's age to complete this topic Meningococcal ACWY Vaccine Aged Out N o longer eligible based on patient's age to complete this topic Meningococcal B Vaccine Aged Out No l onger eligible based on patient's age to complete this topic RSV Immunization Patients Un shashank 20 months Aged Out No longer eligible b ased on patient's age to complete this topic Varicella Vaccines Aged Out No longer eligible based on patient's age to complete this topic Procedures Procedure Name Priority Date/Time Associated Diagnosis Comments XR ANKLE 3+ VIEWS RIGHT STAT 02/05/2025 11:58 AM EDT from Last 3 Months Results * XR Ankle 3+ Views Right (02/05/2025 11:58 AM EDT) Anatomical Region Laterality Modality Lower Extremities, Ankle Right Radiogr aphic Imaging 02/05/2025 12:0 6 PM EDT Impressions 02/05/2025 12:07 PM EDT Impression: No acute fracture or dislocation. Dejah DONALDSON ([id number]) -------- FINAL REPORT -------- Dictated By: Blessing Hill Dictated Date: 02/05/2025 12:06 ET Assigned Physician: Blessing Hill Reviewed and Electronically Signed By: Blessing iHll Signed Date: 02/05/2025 12:07 ET Workstation ID: [id number] Transcribed By: Self Edit Transcribed Date: 02/05/2025 12:06 ET Narrative 02/05/2025 12:07 PM EDT History: Right ankle pain after injury during yard work. Findings: AP, oblique and lateral views of the right ankle. No acute fracture or dislocation is seen. There is no widening of the ankle mortise on these unstressed views. The articular surfaces are unremarkable. An 8 mm corticated ossicle is seen within the soft tissues adjacent to the tip of the lateral malleolus, possibly the sequela of prior injury versus an unfused apophysis. The overlying soft tissues are unremarkable. Procedure Note Blessing Hill MD - 02/05/2025 History: Right ankle pain after injury during yard work. Findings: AP, oblique and lateral views of the right ankle. No acute fracture or dislocation is seen. There is no widening of theankle mortise on these unstressed views. The articular surfaces areunremarkable. An 8 mm corticated ossicle is seen within the soft tissues adjacent to thetip of the lateral malleolus, possibly the sequela of prior injury versusan unfused apophysis. The overlying soft tissues are unremarkable. IMPRESSION: Impression: No acute fracture or dislocation. Telecarolyn DONALDSON ([id number]) -------- FINAL REPORT -------- Dictated By: Blessing Hill Dictated Date: 02/05/2025 12:06 ET Assigned Physician: Blessing Hill Reviewed and Electronically Signed By: Blessing Hill Signed Date: 02/05/2025 12:07 ET Workstation ID: [id number] Transcribed By: Self Edit Transcribed Date: 02/05/2025 12:06 ET us Brent Varela MD IMG XR PROCEDURES Final Res ult from Last 3 Months Insurance [facility] Care Teams Nip Wrapper Relationship Specialty Start Date End Date Cara Baugh MD [address] [place] [address] PCP - General Internal Medicine 02/05/25
[2025-03-12 10:42] LABS: Alanine Aminotransferase 33 U/L (0-40); Anion Gap 12 (12-20); Aspartate Amino Transferase 33 U/L (5-37); Blood Urea Nitrogen 25 mg/dL (9-16); Calcium 9.4 mg/dL (8.4-10.2); Carbon Dioxide 30 mmol/L (22-29); Chloride 106 mmol/L (96-108); Cholesterol 173 mg/dL (<200); Estimated Glomerular Filt Rate 57; HDL Cholesterol 71 mg/dL (>40); Potassium 5.2 mmol/L (3.3-5.1); Sodium 143 mmol/L (135-145); Triglycerides 62 mg/dL (<150)
[2025-03-12 11:02] LABS: Free T4 (Free Thyroxine) 0.74 ng/dL (0.71-1.85); Thyroid Stimulating Hormone 11.27 uIU/mL (0.32-4.0)
== END 2025-03-12 08:59 | disposition home or self-care (01) ==
LOC: HO.HMGCLDS 08:58
PROVIDERS: PCP Internal Medicine; Visit Provider Internal Medicine
DX: I10 Essential (primary) hypertension (principal); E89.0 Postprocedural hypothyroidism; E78.5 Hyperlipidemia, unspecified
CPT/HCPCS: 36415; 80048; 80061; 82306; 84439; 84443; 84450; 84460

== ENCOUNTER 2025-03-14 10:49 | Outpatient (AMB) | payer BC, SELFPAY ==
--- NOTE | 2025-03-14 11:29 | MHC.PC.OV ---
Vital Signs 03/14/25 11:38 Height 5 ft 7 in Weight 200 lb BMI 31.3 BP 142/90 H Blood Pressure Location Rt brachial Position Sitting Respiration 16 Pulse 62 Pulse Source Pulse Oximeter Temp 98.3 F Temp Source Oral Pulse Oximetry (%) 98 Oxygen Delivery Method Room Air Intake Visit Reasons: PE Intake Note: Pt is here today for his PE:Last colonoscopy 11/13/20 Allergies No Known Allergies (No Known Allergies*) Allergy (Verified 03/14/25 11:51) Medication List - Last Reconciled 03/14/25 by Cara Baugh MD amoxicillin 2 g or 4 capsules taken 1 hour prior to dental procedure atorvastatin 20 mg PO DAILY epinephrine 0.3 mL IM ONCE PRN levothyroxine 175 mcg PO DAILY Tobacco use date assessed: 03/14/25 Dental Screening Dental Screen Date: 03/14/25 Did you have a dental visit in the last 12 months?: Yes Did you have a dental problem in the last 6 months where you did not have access to dental care?: Yes Was dental information given to patient?: Patient has dentist [facility] Medical History (Updated 03/14/25 @ 12:05 by Cara Baugh MD) Bleeding hemorrhoids Annual visit for general adult medical examination with abnormal findings Sinus bradycardia Hx of angioedema Sleeping difficulty Overweight (BMI 25.0-29.9) Osteoarthritis Mixed anxiety and depressive disorder Erectile dysfunction Postablative hypothyroidism Family history of prostate cancer in father Lumbar disc herniation Dyslipidemia Essential hypertension Hyperlipemia Surgical History Hx of colonoscopy History of circumcision History of total right knee replacement Family History Mother GERD (gastroesophageal reflux disease) Breast cancer Father HTN (hypertension) CVA (cerebral vascular accident) Prostate cancer Social History Household Members: Family Household Members Other:: father Housing: House Are you a primary patient care to a significant other at home: No Do you presently have visiting nurse or other home services: No Alcohol intake: current Alcohol intake frequency: a few times a month Patient Tobacco Use Status: Never used Tobacco e-Cigarette/Vaping Use: Never Used service: No Current occupational status: employed 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 1. Little interest or pleasure in doing things: not at all 2. Feeling down, depressed, or hopeless: not at all 3. Trouble falling or staying asleep, or sleeping too much: several days 4. Feeling tired or having little energy: nearly every day 5. Poor appetite or overeating: several days 6. Feeling bad about yourself - or that you are a failure or have let yourself or your family down: not at all 7. Trouble concentrating on things, such as reading the newspaper or watching television: not at all 8. Moving or speaking so slowly that other people could have noticed. Or the opposite - being so fidgety or restless that you have been moving around a lot more than usual: not at all 9. Thoughts that you would be better off or of hurting yourself in some way: not at all Total score: 5 Depression Screening Interpretation: Negative Depression Screening Done: Yes 05998 - PHQ-9 Billing: Yes Source: Developed by Drs. Dannie Forbes, Gita Dorman, Hammad Giron and colleagues, with an educational priscila from [employer]. Thrive Questionnaire Date Thrive assessed: 03/14/25 I am a: Patient What is your living situation today?: I have a steady place to live Within the past 12 months, did the food you bought not last and you didn't have the money to get more?: I choose not to answer this question Within the past 12 months, did you worry whether your food would run out before you got money to buy more?: I choose not to answer this question Do you have trouble paying for medicines?: No Do you have trouble getting transportation to medical appointments?: No Do you have trouble paying your heating and electricity bill?: No Do you have trouble taking care of your child, family member or friend?: No Do you have trouble with day-to-day activities such as bathing, preparing meals, shopping, managing finances, etc.?: No Are you currently unemployed and looking for a job?: No Are you interested in more education?: No Please select the resources that you would like help with: None Currently or been in a relationship where the following occur: I choose not to answer THRIVE Score: 0 AUDIT C Alcohol Use Questionnaire (AUDIT-C) 1. How often do you have a drink containing alcohol?: 2-4 times a month 2. How many drinks containing alcohol do you have on a typical day when you are drinking?: 1 or 2 3. How often do you have six or more drinks on one occasion?: Never Total Score: 2 Score Reviewed/Action Taken: Yes REMY-7 AMB Questionnaire REMY-7 Date REMY - 7 assessed: 03/14/25 Feeling nervous, anxious, or on edge: 3 = Nearly every day Not being able to stop or control worryin = Several days Worrying too much about different things: 3 = Nearly every day Trouble relaxin = Nearly every day Being so restless that it is hard to sit still: 3 = Nearly every day Becoming easily annoyed or irritable: 3 = Nearly every day Feeling afraid as if something awful might happen: 3 = Nearly every day Total REMY-7 score (0-4 normal; 5-9 mild; 10-14 moderate; 15-21 severe): 19 Source: Developed by Drs. Dannie Forbes, Gita Dorman, Hammad Giron and colleagues, with an educational priscila from [employer]. REMY-7 Assessment Billing REMY-7 Assessment Tool: REMY-7 Assessment 89774 Review of Systems Eyes Reports requires corrective lenses Physical exam (Primary Care) Vital Signs: Last Vital Signs Temp 98.3 F 03/14/25 11:38 Pulse 62 03/14/25 11:38 Resp 16 03/14/25 11:38 BP 142/90 H 03/14/25 11:38 Pulse Ox 98 03/14/25 11:38 Oxygen Delivery Method Room Air 03/14/25 11:38 BMI result Body Mass Index 31.3 Tobacco/Smoking Status: Tobacco use Status Tobacco use date assessed 03/14/25 03/14/25 11:32 Patient Tobacco Use Status Never used Tobacco 03/14/25 11:32 e-Cigarette/Vaping Use Never Used 03/14/25 11:32 PHQ-9: PHQ-9 Score PHQ-9: Total score 9 03/14/25 11:52 Depression Screening Interpretation: Negative Thrive Assessment: Date of Thrive Assessment Date Thrive assessed 03/14/25 03/14/25 11:32 Currently or been in a relationship where the following occur: I choose not to answer Results AMB Hemoglobin A1c AMB Hemoglobin A1c 5.7 % Last Edit by Cammy Montgomery CMA on 03/14/25 12:14 Coding Diagnoses Postablative hypothyroidism E89.0 Bleeding hemorrhoids K64.9 Dyslipidemia E78.5 Essential hypertension I10 Urinary urgency R39.15 Annual visit for general adult medical examination with abnormal findings Z00.01 Additional Codes REMY-7 Assessment Billing - REMY-7 Assessment Tool: REMY-7 Assessment 79632 ([id number]) PHQ-9 - 06995 - PHQ-9 Billing: Yes ([id number]) Assessment & Plan Assessment & Plan (1) Postablative hypothyroidism: Code(s): E89.0 - Postprocedural hypothyroidism Category: Medical (2) Bleeding hemorrhoids: Code(s): K64.9 - Unspecified hemorrhoids Category: Medical (3) Dyslipidemia: Code(s): E78.5 - Hyperlipidemia, unspecified Category: Medical (4) Essential hypertension: Code(s): I10 - Essential (primary) hypertension Category: Medical (5) Urinary urgency: Code(s): R39.15 - Urgency of urination (6) Annual visit for general adult medical examination with abnormal findings: Code(s): Z00.01 - Encounter for general adult medical examination with abnormal findings Orders: Orders Lipid Panel 3 Months E78.5 - Hyperlipidemia, unspecified, E89.0 - Postprocedural hypothyroidism, I10 - Essential (primary) hypertension, R39.15 - Urgency of urination PSA,Total (Free>4and<10) 3 Months E78.5 - Hyperlipidemia, unspecified, E89.0 - Postprocedural hypothyroidism, I10 - Essential (primary) hypertension, R39.15 - Urgency of urination IRON PROFILE 3 Months Z86.2 - Personal history of diseases of the blood and blood-forming organs and certain disorders involving the immune mechanism AMB Hemoglobin A1c Today Z13.9 - Encounter for screening, unspecified Thyroid Stimulating Hormone 3 Months E78.5 - Hyperlipidemia, unspecified, E89.0 - Postprocedural hypothyroidism, I10 - Essential (primary) hypertension, R39.15 - Urgency of urination Free T4 (Free Thyroxine) 3 Months E78.5 - Hyperlipidemia, unspecified, E89.0 - Postprocedural hypothyroidism, I10 - Essential (primary) hypertension, R39.15 - Urgency of urination Triiodothyronine T3 Free 3 Months E78.5 - Hyperlipidemia, unspecified, E89.0 - Postprocedural hypothyroidism, I10 - Essential (primary) hypertension, R39.15 - Urgency of urination Complete Blood Count Auto Diff 3 Months Z86.2 - Personal history of diseases of the blood and blood-forming organs and certain disorders involving the immune mechanism Referrals General Surgery Referral K64.9 - Unspecified hemorrhoids Medications: New levothyroxine 200 mcg PO DAILY 90 caps 1RF E89.0 - Postprocedural hypothyroidism Discontinued levothyroxine Discontinued Reason: Doctor's Order 175 mcg PO DAILY 90 tabs 1RF
[2025-03-14 11:38] VITALS: BP 142/90; PULSE 62; RESP 16; TEMP 36.8; O2SAT 98; BMI 31.3
--- OUTSIDE RECORDS SUMMARY | 2025-03-14 12:11 | XMS_ITS | Clinical Summary ---
Author Organization [facility] Address [address] [place] [address] Phone Care Team Providers Care Dowel Inspector Name Role Phone Cara Baugh MD Primary Care Provider Allergies No known active allergies Encounters Date Type Department Care Team Description 02/05/2025 2:57 PM EDT - 02/05/2025 2:58 PM EDT Emergency [facility] Emergency [address] [place] [address] Sprain of right ankle, initial [...] No acute fracture or dislocation. Dejah DONALDSON ([id number]) -------- FINAL REPORT -------- Dictated By: Blessing Hill Dictated Date: 02/05/2025 12:06 ET Assigned Physician: Blessing Hill Reviewed and Electronically Signed By: Blessing Hill Signed Date: 02/05/2025 12:07 ET Workstation ID: [id number] Transcribed By: Self Edit Transcribed Date: 02/05/2025 [...] No acute fracture or dislocation. Telecarolyn DONALDSON ([id number]) -------- FINAL REPORT -------- Dictated By: Blessing Hill Dictated Date: 02/05/2025 12:06 ET Assigned Physician: Blesisng Hill Reviewed and Electronically Signed By: Blessing Hill Signed Date: 02/05/2025 12:07 ET Workstation ID: [id number] Transcribed By: Self Edit Transcribed Date: 02/05/2025 12:06 ET us Brent Varela MD IMG XR PROCEDURES Final Res ult from Last 3 Months Insurance [facility] Care Teams Dowel Inspector Relationship Specialty Start Date End Date Cara Baugh MD [address] [place] [address] PCP - General Internal Medicine 02/05/25
--- OUTSIDE RECORDS SUMMARY | 2025-03-14 12:11 | XMS_ITS | Encounter Summary ---
Author Organization [facility] Address [address] [place] [id number] Phone Care Team Providers Care Import Export Clerk Name Role Phone Unknown, Unknown Primary Care Provider Cory Deutsch MD Primary Care Provider [phone] Reason for Referral * Consultation (Elective) - Closed Specialty Diagnoses / Procedures Referred By Darcy medrano Referred To Contact [facility] [address] [place] [address], [address], [address] [place] [address] Phone: tel: fax: [facility] CARD [id number] Referral ID Status Reason Start Date Expiration Date Visits Re quested Visits Authorized [id number] Closed 05/23/2019 05/23/2020 1 1 Electronically signed by [facility] Ad[place], Provider at 05/23/2019 9:35 AM EDT Encounter Details Date Type Department Care Team (Late st Contact Info) Description 05/23/2019 Transcribe Orders [facility] [address] [place] [address], [address], [address] [place] [address] Unknown, Unknown, MD Social History Tobacco Use [...] Associated Diagnoses Order Schedule Ambulatory referral to [facility]iology Outpatient Referral Routine Ordered: 05/23/2019 documented as of this encounter Visit Diagnoses Not on filedocumented in this encounter Care Teams Import Export Clerk Relationship Specialty Start Date End Date Unknown, Unknown, MD PCP - General 05/22/19 07/04/19 Cory Hayes MD [address] [place] [address] Dr Reyes, JIMMY [address] PCP - General Internal Medicine 07/05/19 documented as of this encounter Additional Source Comments The information contained in this document represents components of the legal health record. It is not the complete legal health record.[facility]
== END 2025-03-14 12:12 | disposition home or self-care (01) ==
LOC: HO.HMCC 10:50
PROVIDERS: PCP Internal Medicine; Visit Provider Internal Medicine
DX: Z13.9 Encounter for screening, unspecified (principal)

== ENCOUNTER → 2025-03-14 10:49 | Outpatient (BNVA) | payer BC, SELFPAY | PROVIDERS: PCP Internal Medicine; Visit Provider Internal Medicine | DX: Z00.01 Encounter for general adult medical examination with abnormal findings (principal); R39.15 Urgency of urination; D64.9 Anemia, unspecified; E78.5 Hyperlipidemia, unspecified; K64.9 Unspecified hemorrhoids; I10 Essential (primary) hypertension; F41.9 Anxiety disorder, unspecified; R07.9 Chest pain, unspecified; E89.0 Postprocedural hypothyroidism | CPT/HCPCS: 83036; 96127 ==

== ENCOUNTER 2025-04-25 09:14 | Outpatient (AMB) | payer BC, SELFPAY ==
[2025-04-25 09:23] VITALS: BP 147/83; PULSE 52; BMI 30.3
--- NOTE | 2025-04-25 09:23 | MHC.OFFVIS ---
Vital Signs 04/25/25 09:23 Height 5 ft 7 in Weight 193 lb 4 oz BMI 30.3 BP 147/83 H Blood Pressure Location Rt brachial Position Sitting Pulse 52 Intake Visit Reasons: hemorrhoids Intake Note: This patient presents for hemorrhoids assessment. Pt c/o; reports he had a colonoscopy several years ago, reports no rectal bleeding. Practice Business Asst Required: No Accompanied by: Self / Same As Patient Allergies No Known Allergies (No Known Allergies*) Allergy (Verified 04/25/25 09:34) Medication List - Last Reconciled 04/25/25 by Dru Oakes MD amoxicillin 2 g or 4 capsules taken 1 hour prior to dental procedure atorvastatin 20 mg PO DAILY epinephrine 0.3 mL IM ONCE PRN levothyroxine 200 mcg PO DAILY HPI HPI hemorrhoids: Details: 60-year-old male referred for hemorrhoid issues. He says that he has hemorrhoids for many years. He said an episode of heavy bleeding about 3 months ago. He describes this as bright blood per rectum. He said that he has not had any more episodes since then He does complain of frequent swelling and significant discomfort with this hemorrhoids. He says that these are ?large? Review of his records shows that he had a colonoscopy in 2020 showing internal external hemorrhoids. He also says that his father may have had colon cancer. He does not the details and he does not have any idea as to how old his father was when he had the cancer. [facility] Medical History Bleeding hemorrhoids Annual visit for general adult medical examination with abnormal findings Sinus bradycardia Hx of angioedema Sleeping difficulty Overweight (BMI 25.0-29.9) Osteoarthritis Mixed anxiety and depressive disorder Erectile dysfunction Postablative hypothyroidism Family history of prostate cancer in father Lumbar disc herniation Dyslipidemia Essential hypertension Hyperlipemia Surgical History Hx of colonoscopy History of circumcision History of total right knee replacement Family History Mother GERD (gastroesophageal reflux disease) Breast cancer Father HTN (hypertension) CVA (cerebral vascular accident) Prostate cancer Social History Household Members: Family Household Members Other:: father Housing: House Are you a primary animal care specialist to a significant other at home: No Do you presently have visiting nurse or other home services: No Alcohol intake: current Alcohol intake frequency: a few times a month Patient Tobacco Use Status: Never used Tobacco e-Cigarette/Vaping Use: Never Used service: No Current occupational status: employed 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 Cognitive needs: No Hearing needs: No Vision needs: Yes Review of Systems Const Denies chills and Denies fever(s) Card Denies chest pain, Denies dyspnea and Denies dyspnea on exertion Resp Denies cough, Denies dyspnea and Denies dyspnea on exertion GI Reports hematochezia and Denies change in bowel habits Denies hematuria and Denies difficulty urinating Musc Denies back pain and Denies limited range of motion Neuro Denies focal weakness and Denies convulsions Psych Denies depression and Denies mood swings Physical Exam Const General: comfortable and no acute distress Orientation/consciousness: patient oriented x3 Neck Neck: Yes no lymphadenopathy Resp Auscultation: clear to auscultation bilaterally Cardio Rhythm: regular rhythm GI Other: Rectal exam shows large hemorrhoids, internal external on both the left and right side Palpation (GI): Soft to palpation, nontender and no guarding Neuro General: patient oriented x3 Office Procedures Anoscopy She was in kneeling samantha-knife position. The anoscope was gently inserted. A full examination of the anal canal was done. He had large columns of a mix of internal external hemorrhoids on both the left and right side. There was no bleeding. There is no fissure ulceration. There was no induration on digital exam. [id number] Assessment & Plan Assessment & Plan (1) Bleeding hemorrhoids: Code(s): K64.9 - Unspecified hemorrhoids Category: Medical Plan: He has large internal external hemorrhoids on both the left and right side. He also describes frequent pain and swelling. He says that he has hemorrhoids have been causing significant discomfort. He describes heavy episode of bleeding about 2-3 months ago. He wants to proceed with hemorrhoidectomy. I reviewed with him the technique of EUA and hemorrhoidectomy I explained the risks including but not limited to bleeding, infections, postop pain, as well as the benefits and alternatives. I explained to him what to expect postoperatively. He says he understands and wants to proceed. I also explained to him that he should find out what age his father had when he had the colon cancer as he may need to have anoscopy every 5 years at least. Coding Level of Care Code New Pt Level 3 (56294) Diagnoses Bleeding hemorrhoids K64.9 CPT Codes Details - CPT: 50191-Epcxdkum ([id number])
--- OUTSIDE RECORDS SUMMARY | 2025-04-25 10:01 | XMS_ITS | Encounter Summary ---
Author Organization [facility] Address [address] [place] [address] Phone Care Team Providers Care Hot Dimpling Machine Operator Name Role Phone Unknown, Unknown Primary Care Provider Cory Deutsch MD Primary Care Provider [phone] Reason for Referral * Consultation (Elective) - Closed Specialty Diagnoses / Procedures Referred By Darcy medrano Referred To Contact [facility] Cardiovascular Medicine [address] [place] [address], 5th Floor, [address] [place] [address] Phone: tel: fax: [facility] CARD [id number] Referral ID Status Reason Start Date Expiration Date Visits Re quested Visits Authorized [id number] Closed 05/23/2019 05/23/2020 1 1 Encounter Details Date Type Department Care Team (Late st Contact Info) Description 05/23/2019 Transcribe Orders [facility] Cardiovascular Medicine [address] [place] [address], 5th Floor, [address] [place] [address] Unknown, Unknown, MD Social History Tobacco Use [...] Associated Diagnoses Order Schedule Ambulatory referral to [facility] Cardiology Outpatient Referral Routine Ordered: 05/23/2019 documented as of this encounter Visit Diagnoses Not on filedocumented in this encounter Care Teams Hot Dimpling Machine Operator Relationship Specialty Start Date End Date Unknown, Unknown, MD PCP - General 05/22/19 07/04/19 Cory Hayes MD [address] [place] [address] Dr Reyes, JIMMY [address] PCP - General Internal Medicine 07/05/19 documented as of this encounter Additional Source Comments The information contained in this document represents components of the legal health record. It is not the complete legal health record.[facility]
--- OUTSIDE RECORDS SUMMARY | 2025-04-25 10:01 | XMS_ITS | Clinical Summary ---
Author Organization [facility] Address [address] [place] [address] Phone Care Team Providers Care Retail Merchandising Coordinator Name Role Phone Cara Buagh MD Primary Care Provider [phone] Allergies No known active allergies Encounters Date Type Department Care Team Description 02/05/2025 2:57 PM EDT - 02/05/2025 2:58 PM EDT Emergency [facility] Emergency [address] [place] [address] Sprain of right ankle, initial [...] Health Maintenance Due Date Last Done Comments Colorectal Cancer Screening: Colonoscopy 1967 DTaP,Tdap,and Td Vaccines (1 - Tdap) 1986 Hepatitis B Vaccines (1 of 3 - 19+ 3-dose series) 1986 Pneumococcal Vaccine: 50+ Ye ars (1 of 1 - PCV) 2017 Zoster Vaccines (1 of 2) 2017 Cholesterol Screening (Lipid Panel) 06/27/2022 HIV Screening 06/27/2022 Hepatitis C Screening 06/27/2022 Social Influencers of Health Screening 06/27/2022 Depression Screening 07/26/2024 COVID-19 Vaccine (1 - 2023-2 5 season) 2025 Influenza Vaccine (#1) 2025 09/16/2020 RSV Immunization Adult Patie nts (1 - 1-dose 75+ series) 2042 HIB Vaccines Aged Out No longer eligi [...] EDT Impression: No acute fracture or dislocation. Telecarolyn DONALDSON ([id number]) -------- FINAL REPORT -------- Dictated By: Blessing Hill Dictated Date: 02/05/2025 12:06 ET Assigned Physician: Blessing Hill Reviewed and Electronically Signed By: Blessing Hill Signed Date: 02/05/2025 12:07 ET Workstation ID: [id number] Transcribed By: Self Edit Transcribed Date: 02/05/2025 [...] IMPRESSION: Impression: No acute fracture or dislocation. Telerad MENDOZA ([id number]) -------- FINAL REPORT -------- Dictated By: Blessing Hill Dictated Date: 02/05/2025 12:06 ET Assigned Physician: Blessing Hill Reviewed and Electronically Signed By: Blessing Hill Signed Date: 02/05/2025 12:07 ET Workstation ID: [id number] Transcribed By: Self Edit Transcribed Date: 02/05/2025 12:06 ET us Brent Varela MD IMG XR PROCEDURES Final Res ult from Last 3 Months Insurance [facility] Care Teams Retail Merchandising Coordinator Relationship Specialty Start Date End Date Cara Baugh MD [address] [place] [address] PCP - General Internal Medicine 02/05/25
--- OUTSIDE RECORDS SUMMARY | 2025-04-25 10:01 | XMS_ITS | Clinical Summary ---
Author Organization [facility] Address [address] [place] [address] Phone Care Team Providers Care Chalk Tester Name Role Phone Cory Hayes MD Primary Care Provider [phone] Medications levothyroxine (SYNTHROID, LEVOTHROID) 200 MCG tablet Take 125 mcg by mouth every morning. Active lisinopril (PRINIVIL,ZESTRI L) 5 MG tablet Take 5 mg by mouth daily. Active atorvastatin (LIPITOR) 20 MG tablet Take 20 mg by mouth daily. Active LORazepam (ATIVAN) 1 MG tablet Take 1 mg by mouth every evening. Active Active Problems Problem Noted Date Diagnosed Date Bradycardia 07/07/2019 Family History Medical History Relation Comments Stroke Father Relation Status Comments Father Social History Tobacco Use Types Packs/Day Years Used Date Smoking Tobacco: Never Smokeless Tobacco: Never Alcohol Use Standard Drinks/Week Comments Yes 3 (1 standard drink = 0.6 oz pur e alcohol) Education Answer Date Recorded Are you interested in more education? Not on jazzmine e 11/20/2022 Are you concerned about learning? Not on file 11/20/2022 No 11/20/2022 No 11/20/2022 Digital Access Answer Date Recorded No 12/19/2022 No 12/19/2022 Reliable internet access at home? Not on file 12/19/2022 Device with a working camera? Not on file Sex and Gender Information Value Date Recorded Sex Assigned at Not on file Legal Sex Male 2:17 PM EDT Gender Identity Not on file Sexual Orientation Not on file Last Filed Vital Signs Vital Sign Reading Time Taken Comments Blood Pressure 124/88 07/07/2019 9:58 AM EST Pulse 50 07/07/2019 9:58 AM EST Temperature - - Respiratory Rate - - Oxygen Saturation - - Inhaled Oxygen Concentration - - Weight 78 kg (172 lb) 07/07/2019 9:58 AM EST Height - - Body Mass Index - - Plan of Treatment Health Maintenance Due Date Last Done Comments Adult Td,Tdap Booster 1967 CREATININE LEVEL 1967 LIPID PANEL 1967 POTASSIUM LEVEL 1967 TSH LEVEL 1967 DEPRESSION SCREENING 1979 HEPATITIS C SCREENING 1985 HIV ONE-TIME SCREENING (18-6 5 YEARS) 1985 SMOKING STATUS SCREENING (On ce After 26 Yrs) 1993 COLOGUARD 2012 COLONOSCOPY 2012 COLORECTAL CANCER SCREENING 2012 FIT TEST 2012 FOBT 2012 SIGMOIDOSCOPY 2012 VIRTUAL COLONOSCOPY 2012 PNEUMOCOCCAL VACCINES (50+ years) (1 of 1 - PCV) 2017 ZOSTER VACCINES (1 of 2) 2017 INFLUENZA VACCINE (#1) 2025 09/16/2020 COVID-19 VACCINE (3 - 2024-2 6 season) 2025 04/23/2021, 04/02/2021 HEPATITIS A VACCINES Aged Out No long er eligible based on patient's age to complete this topic HIB VACCINES Aged Out No longer eligi ble based on patient's age to complete this topic MENINGOCOCCAL VACCINES (ACWY) Aged Out No longer eligible based on patient's age to complete this topic MENINGOCOCCAL VACCINES (B) Aged Out N o longer eligible based on patient's age to complete this topic Medical Devices Not on file Insurance [facility] OUT [facility] PPO BLUE CROSS OUT OF STATE PPO BLUE CROSS OUT OF STATE PPO BLUE CROSS OUT OF STATE PPO BLUE CROSS OUT OF STATE PPO BLUE CROSS OUT OF [facility] PPO BLUE CROSS OUT OF STATE PPO OUT [facility] PPO OUT [facility] PPO Care Teams Chalk Tester Relationship Specialty Start Date End Date Cory Hayes MD [address] [place] [address] [place] [address] PCP - General Internal Medicine 07/05/19 Additional Source Comments The information contained in this document represents components of the legal health record. It is not the complete legal health record.[facility]
== END 2025-04-25 09:48 | disposition home or self-care (01) ==
LOC: HO.HGS 09:14
PROVIDERS: PCP Internal Medicine; Visit Provider Surgery
DX: K64.9 Unspecified hemorrhoids (principal)
CPT/HCPCS: 46600; 99213

== ENCOUNTER → 2025-04-25 09:14 | Outpatient (BNVA) | payer BC, SELFPAY | PROVIDERS: PCP Internal Medicine; Visit Provider Surgery | DX: K64.9 Unspecified hemorrhoids (principal) | CPT/HCPCS: 46600 ==

== ENCOUNTER 2025-06-08 06:55 | Day surgery (SDC) | payer BC, SELFPAY ==
--- OUTSIDE RECORDS SUMMARY | 2025-05-01 08:54 | XMS_ITS | Encounter Summary ---
Author Organization [facility] Address [address] [place] [address] Phone Care Team Providers Care Horse Breeder Name Role Phone Unknown, Unknown Primary Care Provider Cory Deutsch MD Primary Care Provider [phone] Reason for Referral * Consultation (Elective) - Closed Specialty Diagnoses / Procedures Referred By Darcy medrano Referred To Contact [facility] Cardiovascular Medicine [address] [place] [address], 5th Floor, [address] [place] [address] Phone: tel: fax: [facility] CARD [id number] Referral ID Status Reason Start Date Expiration Date Visits Re quested Visits Authorized [id number] Closed 05/23/2019 05/23/2020 1 1 Encounter Details Date Type Department Care Team (Late st Contact Info) Description 05/23/2019 Transcribe Orders [facility] Cardiovascular Medicine [address] [place] [address], 5th Floor, [address] [place] [address] Unknown, Unknown, MD Social History Tobacco Use [...] Associated Diagnoses Order Schedule Ambulatory referral to [facility] Cardiology Outpatient Referral Routine Ordered: 05/23/2019 documented as of this encounter Visit Diagnoses Not on filedocumented in this encounter Care Teams Horse Breeder Relationship Specialty Start Date End Date Unknown, Unknown, MD PCP - General 05/22/19 07/04/19 Cory Hayes MD [address] [place] [address] Dr Reyes, JIMMY [address] PCP - General Internal Medicine 07/05/19 documented as of this encounter Additional Source Comments The information contained in this document represents components of the legal health record. It is not the complete legal health record.[facility]
--- OUTSIDE RECORDS SUMMARY | 2025-05-01 08:54 | XMS_ITS | Clinical Summary ---
Author Organization [facility] Address [address] [place] [address] Phone Care Team Providers Care Carburizer Name Role Phone Cara Baugh MD Primary Care Provider [phone] Allergies No known active allergies Encounters Date Type Department Care Team Description 02/05/2025 2:57 PM EDT - 02/05/2025 2:58 PM EDT Emergency [facility] Emergency [address] [place] [address] Sprain of right ankle, initial [...] No acute fracture or dislocation. Telecarolyn DONALDSON ([id number]) -------- FINAL REPORT -------- Dictated By: Blessing Hill Dictated Date: 02/05/2025 12:06 ET Assigned Physician: Blessing Hill Reviewed and Electronically Signed By: Blessing Hill Signed Date: 02/05/2025 12:07 ET Workstation ID: [id number] Transcribed By: Self Edit Transcribed Date: 02/05/2025 [...] No acute fracture or dislocation. Telerad MENDOZA ([id number]) -------- FINAL REPORT -------- Dictated By: Blessing Hill Dictated Date: 02/05/2025 12:06 ET Assigned Physician: Blessing Hill Reviewed and Electronically Signed By: Blessing Hill Signed Date: 02/05/2025 12:07 ET Workstation ID: [id number] Transcribed By: Self Edit Transcribed Date: 02/05/2025 12:06 ET us Brent Varela MD IMG XR PROCEDURES Final Res ult from Last 3 Months Insurance [facility] Care Teams Carburizer Relationship Specialty Start Date End Date Cara Baugh MD [address] [place] [address] PCP - General Internal Medicine 02/05/25
--- OUTSIDE RECORDS SUMMARY | 2025-05-01 08:54 | XMS_ITS | Clinical Summary ---
Author Organization [facility] Address [address] [place] [address] Phone Care Team Providers Care Survey Crew Chief Name Role Phone Cory Hayes MD Primary Care Provider [phone] Medications levothyroxine (SYNTHROID, LEVOTHROID) 200 MCG tablet [...] topic Medical Devices Not on file Insurance [facility] OUT [facility] PPO BLUE CROSS OUT OF STATE PPO BLUE CROSS OUT OF STATE PPO BLUE CROSS OUT OF STATE PPO BLUE CROSS OUT OF STATE PPO BLUE CROSS OUT OF [facility] PPO BLUE CROSS OUT OF STATE PPO OUT [facility] PPO OUT [facility] PPO Care Teams Survey Crew Chief Relationship Specialty Start Date End Date Cory Hayes MD [address] [place] [address] [place] [address] PCP - General Internal Medicine 07/05/19 Additional Source Comments The information contained in this document represents components of the legal health record. It is not the complete legal health record.[facility]
--- NOTE | 2025-06-05 09:32 | P.CONAN_ITS ---
Documented by User: India Thomson NP 06/05/25 09:36 HPI - Anesthesia Eval Consult details Narrative: 60 yr old male for EUA,Hemorrhoidectomy H/O bradycardia K+ elevated on PCP lab draw 02/2025, repeat DOS PMFSH Active Problems Active Problems: All Active Problems (Updated 03/14/25 @ 12:05 by Cara Baugh MD) Bleeding hemorrhoids (Acute) Sinus bradycardia (Acute) Overweight (BMI 25.0-29.9) (Acute) Osteoarthritis of left knee (Acute) Hemorrhoids (Acute) Erectile dysfunction (Acute) Postablative hypothyroidism (Acute) Lumbar disc herniation (Acute) Dyslipidemia (Acute) Essential hypertension (Acute) Past Medical History Medical History Bleeding hemorrhoids Annual visit for general adult medical examination with abnormal findings Sinus bradycardia Hx of angioedema Sleeping difficulty Overweight (BMI 25.0-29.9) Osteoarthritis Mixed anxiety and depressive disorder Erectile dysfunction Postablative hypothyroidism Family history of prostate cancer in father Lumbar disc herniation Dyslipidemia Essential hypertension Hyperlipemia Family History Family History Mother GERD (gastroesophageal reflux disease) Breast cancer Father HTN (hypertension) CVA (cerebral vascular accident) Prostate cancer Family history of problems with anesthesia: No Surgical History Surgical History (Updated 06/06/25 @ 09:10 by Susy Sal RN) History of total left knee replacement (TKR) (10/2021) Hx of colonoscopy (10/2020) History of circumcision History of total right knee replacement History of Problems with Anesthesia: No Social History Social History Household Members: Family Household Members Other:: father Housing: House Are you a primary child care center assistant director to a significant other at home: No Do you presently have visiting nurse or other home services: No Alcohol intake: current Alcohol intake frequency: a few times a month Patient Tobacco Use Status: Never used Tobacco e-Cigarette/Vaping Use: Never Used Advance Directives: No Advance Directives Information Provided: Yes service: No Current occupational status: employed 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 Cognitive needs: No Hearing needs: No Vision needs: Yes Meds Allergies Allergy/AdvReac Type Severity Reaction Status Date / Time peanut Allergy Angioedema Verified 06/08/25 07:13 Home Medications ?Medication ?Instructions ?Recorded ?Confirmed ?Last Taken ?Type epinephrine 0.3 mg/0.3 mL 0.3 ml IM ONCE PRN Allergic 05/01/22 04/25/25 Unknown History injection, auto-injector Reaction Assessment and Plan Final Anesthetic Review Family History of Problems with Anesthesia: No History of Problems with Anesthesia: No Documented by User: Kalli Kraus MD 06/08/25 07:14 [facility] Past Medical History Medical History Bleeding hemorrhoids Annual visit for general adult medical examination with abnormal findings Sinus bradycardia Hx of angioedema Sleeping difficulty Overweight (BMI 25.0-29.9) Osteoarthritis Mixed anxiety and depressive disorder Erectile dysfunction Postablative hypothyroidism Family history of prostate cancer in father Lumbar disc herniation Dyslipidemia Essential hypertension Hyperlipemia Family History Family History Mother GERD (gastroesophageal reflux disease) Breast cancer Father HTN (hypertension) CVA (cerebral vascular accident) Prostate cancer Surgical History Surgical History (Updated 06/06/25 @ 09:10 by Susy Sal RN) History of total left knee replacement (TKR) (10/2021) Hx of colonoscopy (10/2020) History of circumcision History of total right knee replacement Social History Social History Household Members: Family Household Members Other:: father Housing: House Are you a primary child care center assistant director to a significant other at home: No Do you presently have visiting nurse or other home services: No Alcohol intake: current Alcohol intake frequency: a few times a month Patient Tobacco Use Status: Never used Tobacco e-Cigarette/Vaping Use: Never Used Advance Directives: No Advance Directives Information Provided: Yes service: No Current occupational status: employed 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 Cognitive needs: No Hearing needs: No Vision needs: Yes Meds Allergies Allergy/AdvReac Type Severity Reaction Status Date / Time peanut Allergy Angioedema Verified 06/08/25 07:13 Home Medications ?Medication ?Instructions ?Recorded ?Confirmed ?Last Taken ?Type epinephrine 0.3 mg/0.3 mL 0.3 ml IM ONCE PRN Allergic 05/01/22 04/25/25 Unknown History injection, auto-injector Reaction Exam Airway Mallampati Class: II TM Dist: >3cm Neck ROM: Full Heart: rrr Lungs: cta Assessment and Plan Assessment Anesthesia Assessment: Anesthesia Plan Discussed and Chart Reviewed Final Anesthetic Review NPO: Yes ASA Class: II Final Preanesthetic Review: No Changes in Pt Med Stat, Meds/Allgs Chart Reviewed and Consent Obtained/Reviewed Patient Risk: Low Procedure Risk: Intermediate Anesthetic Plan Anesthetic Plan: GA Disposition: Standard PACU
[2025-06-06 09:08] VITALS: BMI 30.3
[2025-06-08] VITALS (11 sets, daily range): BP systolic 118–166; BP diastolic 73–96; PULSE 57–84; RESP 16–18; TEMP 36.1–36.7; O2SAT 92–96
[2025-06-08] MEDS: Lactated Ringers 1,000 ML 100 ML IVCONT (07:15)
[2025-06-08 08:07] LABS: Anion Gap 13 (12-20); Carbon Dioxide 25 mmol/L (22-29); Chloride 109 mmol/L (96-108); Potassium 4.5 mmol/L (3.3-5.1); Sodium 142 mmol/L (135-145)
--- NOTE | 2025-06-08 08:24 | MHC.SHP ---
Pre-Procedural Eval Section A - 24 Hr Update-Section A only Date of Service: 06/08/25 The patient is an INPATIENT: No Changes since office visit: No Cold of Flu in the past 2 weeks, No New Medical Problems, No Changes in Medication and No Patient answered all questions The patient has been examined within 24 hours of the surgical procedure. The History & Physical has been completed within 30 days and I have reviewed it.: Yes Section B - Complete if H&P > 30 days Chief Complaint: Unspecified hemorrhoids Allergies: Allergies Allergy/AdvReac Type Severity Reaction Status Date / Time peanut Allergy Angioedema Verified 06/08/25 07:13 Plan I have reviewed the history and physical and performed a pertinent physical examination on my patient. No changes have occurred unless specified. Time Spent With Patient Time: Total time managing care of this patient today ____ minutes.
--- NOTE | 2025-06-08 10:17 | P.OP_ITS ---
Operative Note Operative Note Date of Service: 06/08/25 Narrative: Preop diagnosis: Large Internal and external hemorrhoids with bleeding and prolapse Postop diagnosis: Large internal and external hemorrhoids with bleeding and prolapse Procedure: Exam under anesthesia hemorrhoidectomy x2 columns Surgeon: Dru Oakes MD Shipping/Receiving Manager: Hattie Womack, MS 3 The patient is a 60-year-old male with a large internal external hemorrhoid with note of frequent bleeding he also has uncomfortable prolapse. He wanted to proceed with hemorrhoidectomy in view these symptoms. He understood the technique of the planned procedure as well as the risks, benefits, and alternatives He was brought to the operating room. He was placed in prone samantha-knife position under general anesthesia via endotracheal tube. The buttocks were retracted with wide tape laterally. The perianal area was prepped and draped in the usual sterile fashion. A surgical time-out was done. The patient received Cefotan 2 g IV preoperatively Examination of the anal orifice showed large external hemorrhoids with prolapse of the internal component. The perianal area was infiltrated with lidocaine 1%. I inserted the Jostin Graham retractor. I examined the anal canal circumferentially. These mixed hemorrh oidal columns were seen and were noted to be bulky. No other lesions. There was no fissure or ulceration I retracted the hemorrhoidal column on the left a Washburn grasper. I applied a nlbbsq-gl-hlxjf stitch at the pedicle just past the dentate line with a chromic 3-0. I then made an incision around this hemorrhoidal column to the perianal skin with a blade 15. This carried down with Metzenbaum scissors. I excised this hemorrhoidal column above the plane of the sphincters along this incision with the Metzenbaum scissors. I closed the incision with a running chromic 3-0 stitch. We had to place multiple additional eocjrs-nx-esofu hemostatic chromic 3-0 sutures to control oozing areas. There was note of significant oozing because of the large size of the hemorrhoids I duplicated the procedure on the large hemorrhoidal column as well on the right side. Again, a ddxpho-fh-lyfvv stitch was placed at the pedicle with a chromic 3-0 and I made an incision around this hemorrhoidal column to the perianal skin a blade 15. I excised this hemorrhoidal column above thickness sphincters with scissors. I closed this incision with a running chromic 3-0 stitch. Again multiple hemostatic cglnkn-ah-payyr sutures were placed We had to observed for several minutes in view of the oozing on different areas. We had to place multiple hemostatic sutures sure that we had adequate hemos tasis. I observed for about 2 minutes. Once it appeared that we had good hemostasis, I infiltrated the perianal area with Marcaine 0.5% for postop analgesia. A Gelfoam packing was placed in the anal canal The procedure was then completed The patient tolerated procedure well. There were no immediate complications. Initial final counts of sponges and instruments were correct. Estimated blood loss was about 150 cc. The patient is extubated without difficulty and transferred to the recovery room with stable vital signs.
[2025-06-08] MEDS: oxyCODONE HCl Immed Release 5 MG TABLET PO (11:00)
== END 2025-06-08 12:14 | disposition home or self-care (01) ==
PROVIDERS: Nurse Practitioner; PCP Internal Medicine; Visit Provider Surgery
PROC: (CPT 46260; principal; 2025-06-08 08:30)
DX: K64.8 Other hemorrhoids (principal); K64.4 Residual hemorrhoidal skin tags; K62.5 Hemorrhage of anus and rectum; N52.9 Male erectile dysfunction, unspecified; Z80.42 Family history of malignant neoplasm of prostate; I10 Essential (primary) hypertension; E78.5 Hyperlipidemia, unspecified; E89.0 Postprocedural hypothyroidism; F41.8 Other specified anxiety disorders; Z88.1 Allergy status to other antibiotic agents; Z88.8 Allergy status to other drugs, medicaments and biological substances; Z96.651 Presence of right artificial knee joint
CPT/HCPCS: 46260; 36415; 80051; 88304; J0131; J0525; J1100; J2003; J2250; J2405; J2704; J2795; J3010

== ENCOUNTER → 2025-06-08 06:55 | Outpatient (BNV) | payer BC, SELFPAY | PROVIDERS: PCP Internal Medicine; Visit Provider Surgery | DX: K64.8 Other hemorrhoids (principal) | CPT/HCPCS: 46260 ==

== ENCOUNTER 2025-06-13 07:54 | Outpatient (REF) | payer BC, SELFPAY ==
[2025-06-13 10:35] LABS: MANUAL DIFF FLAG NO
[2025-06-13 10:39] LABS: Hematocrit 40.9 % (42.0-52.0); Hemoglobin 13.2 g/dl (14.0-18.0); Imm Gran Abs Auto 0.02 X10*3/uL (0.00-0.03); Imm Gran Pct Auto 0.3 % (0.0-0.4); Lymphocytes Absolute Auto 1.8 X10*3/uL (1.2-4.9); Mean Corpuscular HGB Conc 32.3 g/dl (31.0-36.0); Mean Corpuscular Hemoglobin 32.0 pg (27.0-33.0); Mean Corpuscular Volume 99.3 fL (80.0-98.0); NRBC Abs Auto 0.000 X10*3/uL (0.0-0.012); NRBC Pct Auto 0.0 /100WBC (0.0-0.2); Platelet Count 233 X10*3/uL (160-400); Red Blood Count 4.12 X10*6/uL (4.60-5.80); White Blood Count 6.8 X10*3/uL (4.8-10.8)
[2025-06-13 11:29] LABS: PSA,Total (Free>4and<10) 0.45 ng/mL (0.00-4.00)
[2025-06-13 11:34] LABS: Cholesterol 148 mg/dL (<200); HDL Cholesterol 67 mg/dL (>40); Iron 55 mcg/dL (45-160); Percent Iron Saturation 21 % (15-50); Total Iron Binding Capacity 267 mcg/dL (228-428); Triglycerides 61 mg/dL (<150); Unsaturated Iron Binding 212 ug/dL
[2025-06-13 11:36] LABS: Free T4 (Free Thyroxine) 1.36 ng/dL (0.71-1.85); Thyroid Stimulating Hormone 0.72 uIU/mL (0.32-4.0)
== END 2025-06-13 07:55 | disposition home or self-care (01) ==
LOC: HO.HMGCLDS 07:54
PROVIDERS: PCP Internal Medicine; Visit Provider Internal Medicine
DX: Z12.5 Encounter for screening for malignant neoplasm of prostate (principal); Z23 Encounter for immunization; I10 Essential (primary) hypertension; E89.0 Postprocedural hypothyroidism; R39.15 Urgency of urination; E78.5 Hyperlipidemia, unspecified; R00.1 Bradycardia, unspecified; Z86.2 Personal history of diseases of the blood and blood-forming organs and certain disorders involving the immune mechanism; Z79.891 Long term (current) use of opiate analgesic; Z79.890 Hormone replacement therapy; Z79.899 Other long term (current) drug therapy
CPT/HCPCS: 36415; 80061; 83540; 84153; 84439; 84443; 84481; 85025; 90471; 90656

== ENCOUNTER 2025-06-13 07:54 | Outpatient (AMB) | payer BC, SELFPAY ==
--- NOTE | 2025-06-13 08:01 | A.OFFPC_ITS ---
Vital Signs 06/13/25 08:03 Height 5 ft 6 in Weight 195 lb BMI 31.5 BP 142/82 H Blood Pressure Location Rt brachial Position Sitting Pulse 57 Pulse Source Pulse Oximeter Temp 98.5 F Temp Source Oral Pulse Oximetry (%) 97 Oxygen Delivery Method Room Air Intake Visit Reasons: 3m follow up Intake Note: Pt is here today for his 3mo. f/u HTN Panelboard Operator Required: No Allergies peanut Allergy (Verified 06/13/25 08:24) Angioedema Medication List - Last Reconciled 06/13/25 by Cara Baugh MD atorvastatin 20 mg PO DAILY docusate sodium (Colace) 100 mg PO BID epinephrine 0.3 mL IM ONCE PRN ibuprofen 600 mg PO Q6H PRN levothyroxine 200 mcg PO DAILY lisinopril 20 mg PO DAILY oxycodone-acetaminophen 5-325 mg 1 tab PO Q6H PRN Tobacco use date assessed: 06/13/25 Dental Screening Dental Screen Date: 06/13/25 Did you have a dental visit in the last 12 months?: Yes Did you have a dental problem in the last 6 months where you did not have access to dental care?: No Was dental information given to patient?: Patient has dentist [facility] Medical History Bleeding hemorrhoids Annual visit for general adult medical examination with abnormal findings Sinus bradycardia Hx of angioedema Sleeping difficulty Overweight (BMI 25.0-29.9) Osteoarthritis Mixed anxiety and depressive disorder Erectile dysfunction Postablative hypothyroidism Family history of prostate cancer in father Lumbar disc herniation Dyslipidemia Essential hypertension Hyperlipemia Surgical History History of total left knee replacement (TKR) (10/2021) Hx of colonoscopy (10/2020) History of circumcision History of total right knee replacement Family History Mother GERD (gastroesophageal reflux disease) Breast cancer Father HTN (hypertension) CVA (cerebral vascular accident) Prostate cancer Social History Household Members: Family Household Members Other:: father Housing: House Are you a primary child care assistant to a significant other at home: No Do you presently have visiting nurse or other home services: No Alcohol intake: current Alcohol intake frequency: a few times a month Comment: COUNTS CORRECT Patient Tobacco Use Status: Never used Tobacco e-Cigarette/Vaping Use: Never Used service: No Current occupational status: employed 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 Cognitive needs: No Hearing needs: No Vision needs: Yes Questionnaire Thrive Questionnaire Date Thrive assessed: 03/14/25 I am a: Patient What is your living situation today?: I have a steady place to live Within the past 12 months, did the food you bought not last and you didn't have the money to get more?: I choose not to answer this question Within the past 12 months, did you worry whether your food would run out before you got money to buy more?: I choose not to answer this question Do you have trouble paying for medicines?: No Do you have trouble getting transportation to medical appointments?: No Do you have trouble paying your heating and electricity bill?: No Do you have trouble taking care of your child, family member or friend?: No Do you have trouble with day-to-day activities such as bathing, preparing meals, shopping, managing finances, etc.?: No Are you currently unemployed and looking for a job?: No Are you interested in more education?: No Please select the resources that you would like help with: None Currently or been in a relationship where the following occur: I choose not to answer THRIVE Score: 0 REMY-7 AMB Questionnaire REMY-7 Date REMY - 7 assessed: 03/14/25 Source: Developed by Drs. Dannie Forbes, Gita Dorman, Hammad Giron and colleagues, with an educational priscila from [employer]. Physical exam (Primary Care) Vital Signs: Last Vital Signs Temp 98.5 F 06/13/25 08:03 Pulse 57 06/13/25 08:03 BP 142/82 H 06/13/25 08:03 Pulse Ox 97 06/13/25 08:03 Oxygen Delivery Method Room Air 06/13/25 08:03 BMI result Body Mass Index 31.5 Tobacco/Smoking Status: Tobacco use Status Tobacco use date assessed 06/13/25 06/13/25 08:07 Patient Tobacco Use Status Never used Tobacco 06/13/25 08:03 e-Cigarette/Vaping Use Never Used 06/13/25 08:03 Thrive Assessment: Date of Thrive Assessment Date Thrive assessed 03/14/25 06/13/25 08:03 Currently or been in a relationship where the following occur: I choose not to answer Office Procedures Flu Questionnaire Does the patient have a severe egg allergy?: No Does the patient have severe life threatening allergies?: No Does the patient have a fever or illness today?: No Has the patient ever had Guillain-Votaw Syndrome?: No Has the patient ever had any past reaction to a flu shot?: No Immunizations Fluarix [id number] (PF) 45 mcg (15 mcg x 3)/0.5 mL IM syringe Performing Provider: Cara Baugh MD [place] [facility] Administered by: Cammy Montgomery CMA on 06/13/25 08:42 Dose Route Admin Location Dispensed Lot Number Expiration Date [facility] Manager Inventory Control 0.5 mL IM Right Deltoid 0.5 mL [id number] 01/22/26 [id number] [employer] VIS Given Date VIS Provided VIS Publication Date 06/13/25 Single Vaccine 24 Eligibility Eligibility Date Funding Source Not [facility] Eligible 06/13/25 Private Coding Assessment & Plan Assessment & Plan Orders: Orders Influenza [id number] Immunization Today Z23 - Encounter for immunization Medications: New lisinopril 20 mg PO DAILY 90 tabs 2RF
[2025-06-13 08:03] VITALS: BP 142/82; PULSE 57; TEMP 36.9; O2SAT 97; BMI 31.5
--- OUTSIDE RECORDS SUMMARY | 2025-06-13 15:27 | XMS_ITS | Clinical Summary ---
Author Organization [facility] Address [address] [place] [id number] Phone Care Team Providers Care Shellfish Shucker Name Role Phone Cory Hayes MD Primary Care Provider [phone] Medications levothyroxine (SYNTHROID, LEVOTHROID) 200 MCG tablet [...] - 2024-2 6 season) 2025 04/23/2021, 04/02/2021 RSV VACCINE (1 - 1-dose 75+ series) 2042 HEPATITIS A VACCINES Aged Out No long [...] topic Medical Devices Not on file Insurance OUT [facility] PPO CROSS OUT OF STATE PPO CROSS OUT OF [facility] [place] [address] [place] [address] CROSS OUT OF STATE PPO BLUE CROSS OUT OF STATE PPO BLUE CROSS OUT OF STATE PPO BLUE CROSS OUT OF STATE PPO OUT OF [facility] PPO Member Subscriber Plan / Payer (Ef fective 2015-Present) Name:JadielKemar gupta Relation to Subscriber:Self Name:Kemar Peck Payer ID:[id number] (NAIC) Type:PPO Address: [address] [place] [id number] OUT [facility] PPO Care Teams Shellfish Shucker Relationship Specialty Start Date End Date Cory Hayes MD [address] [place] [address] [place] [address] PCP - General Internal Medicine 07/05/19 Additional Source Comments The information contained in this document represents components of the legal health record. It is not the complete legal health record.[facility]
--- OUTSIDE RECORDS SUMMARY | 2025-06-13 15:27 | XMS_ITS | Encounter Summary ---
Author Organization [facility] Address [address] [place] [address] Phone Care Team Providers Care Olive Pitter Name Role Phone Unknown, Unknown Primary Care Provider Cory Deutsch MD Primary Care Provider [phone] Reason for Referral * Consultation (Elective) - Closed Specialty Diagnoses / Procedures Referred By Darcy medrano Referred To Contact [facility] [address] [place] [address], 5th Floor, [address] [place] [address] Phone: tel: fax: [facility] [place] [id number] Referral ID Status Reason Start Date Expiration Date Visits Re quested Visits Authorized [id number] Closed 05/23/2019 05/23/2020 1 1 Encounter Details Date Type Department Care Team (Late st Contact Info) Description 05/23/2019 Transcribe Orders [facility] [address] [place] [address], 5th Floor, [address] [place] [address] Unknown, Unknown, MD Social History Tobacco Use [...] Associated Diagnoses Order Schedule Ambulatory referral to [facility] Cardiology Outpatient Referral Routine Ordered: 05/23/2019 documented as of this encounter Visit Diagnoses Not on filedocumented in this encounter Care Teams Olive Pitter Relationship Specialty Start Date End Date Unknown, Unknown, MD PCP - General 05/22/19 07/04/19 Cory Hayes MD [address] [place] [address] Dr [place], [place]IMMY [id number] PCP - General Internal Medicine 07/05/19 documented as of this encounter Additional Source Comments The information contained in this document represents components of the legal health record. It is not the complete legal health record.[facility]
--- OUTSIDE RECORDS SUMMARY | 2025-06-13 15:27 | XMS_ITS | Clinical Summary ---
Author Organization [facility] Address [address] [place] [phone] Phone Care Team Providers Care Fuel Distribution System Operator Name Role Phone Cara Baugh MD Primary Care Provider Allergies No known active allergies Social History Tobacco Use Types Packs/Day Years [...] Depression Screening 07/26/2024 COVID-19 Vaccine (1 - 2024-2 6 season) 2025 Influenza Vaccine (#1) 2025 09/16/2020 [...] on patient's age to complete this topic Insurance [facility] Care Teams Fuel Distribution System Operator Relationship Specialty Start Date End Date Cara Baugh MD [address] [place] [address] PCP - General Internal Medicine 02/05/25
== END 2025-06-13 09:35 | disposition home or self-care (01) ==
LOC: HO.HMCC 07:55
PROVIDERS: PCP Internal Medicine; Visit Provider Internal Medicine
DX: Z23 Encounter for immunization (principal)

== ENCOUNTER 2025-06-26 10:49 | Outpatient (AMB) | payer BC, SELFPAY ==
[2025-06-26 10:50] VITALS: BMI 30.8
--- NOTE | 2025-06-26 10:50 | A.OFFVIS_ITS ---
Vital Signs 06/26/25 10:50 Height 5 ft 6 in Weight 191 lb BMI 30.8 Intake Visit Reasons: s/p EUA hemorrhoidectomy Intake Note: Patient presents for post-op assessment status post EUA, hemorrhoidectomy x2 columns. Pt c/o; reports minimal rectal bleeding, occasional constipation, I feel like it is worse . Pipe Organ Tuner And Repairer Required: No Accompanied by: Self / Same As Patient Allergies peanut Allergy (Verified 06/26/25 10:58) Angioedema HPI HPI s/p EUA hemorrhoidectomy: Details: doing okay, pain control has been difficult, but improving. describes some pressure with bowel movements. BMs are soft, continues to take stool softener daily. Has been doing sitz baths every day, after each bowel movement. Denies fevers at home. Initially had some rectal bleeding but this is improvng, now small amounts occasionally after bm PFSH Medical History Bleeding hemorrhoids Annual visit for general adult medical examination with abnormal findings Sinus bradycardia Hx of angioedema Sleeping difficulty Overweight (BMI 25.0-29.9) Osteoarthritis Mixed anxiety and depressive disorder Erectile dysfunction Postablative hypothyroidism Family history of prostate cancer in father Lumbar disc herniation Dyslipidemia Essential hypertension Hyperlipemia Surgical History (Updated 06/26/25 @ 11:15 by Anurag Houston PA-C) History of hemorrhoidectomy (~06/08/25) History of total left knee replacement (TKR) (10/2021) Hx of colonoscopy (10/2020) History of circumcision History of total right knee replacement Family History Mother GERD (gastroesophageal reflux disease) Breast cancer Father HTN (hypertension) CVA (cerebral vascular accident) Prostate cancer Social History Household Members: Family Household Members Other:: father Housing: House Are you a primary manager of care to a significant other at home: No Do you presently have visiting nurse or other home services: No Alcohol intake: current Alcohol intake frequency: a few times a month Comment: COUNTS CORRECT Patient Tobacco Use Status: Never used Tobacco e-Cigarette/Vaping Use: Never Used service: No Current occupational status: employed 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 No drainage. Mildly tender to palpation Neuro General: patient oriented x3 Assessment & Plan Assessment & Plan (1) History of hemorrhoidectomy: Onset Date: ~06/08/25 Comment: Exam under anesthesia hemorrhoidectomy x2 columns- Dr. Champ MCCALL FACS Code(s): Z98.890 - Other specified postprocedural states Category: Medical Plan 89-year-old SP hemorrhoidectomy for large internal external [address] Oakes on 06/08/2025 returning to the office for routine postop visit. Struggling some pain control, has been using sskt-lcz-[id number] medications for this and thinks it is improving overall but the initial days postoperatively were difficult for him. Had some rectal bleeding then and continues to have intermittent bleeding with bowel movements but thinks this is improving. Denying fevers or chills at home. Is having consistent bowel movements that are soft. Using Colace daily for preventing straining. She additionally continue high-fiber diet, adequate hydration. It does feel like he has a pressure sensation with having a bowel movement. On exam he does appear to be healing well however there are some hemorrhoids that are still protruding from the anus. Is likely that these are remnant the surgery as he had extensive disease prior to surgical intervention. They do not appear thrombosed at this time. There was no evidence of infection at this time. We reviewed the pathology report together showing right hemorrhoid: Anorectal mucosa with prominent subepithelial fibrosis and reactive changes, consistent with prominent anal papilla. Soft tissue, left ?hemorrhoid,? excision: Anorectal mucosa with dilated and thrombosed vessels, consistent with hemorrhoid. He would like to returned to work, this is okay to return to work without restrictions patient is comfortable with this. He will return in 2-[address] Oakes for follow up. Can call sooner with any concerns or questions. Coding Level of Care Code Global (88422) Diagnoses History of hemorrhoidectomy Z98.890
--- OUTSIDE RECORDS SUMMARY | 2025-06-26 12:42 | XMS_ITS | Encounter Summary ---
Author Organization [facility] Address [address] [place] [address] Phone Care Team Providers Care Financial Services Officer Name Role Phone Unknown, Unknown Primary Care Provider Cory Deutsch MD Primary Care Provider [phone] Reason for Referral * Consultation (Elective) - Closed Specialty Diagnoses / Procedures Referred By Darcy medrano Referred To Contact [facility] Cardiovascular Medicine [address] [place] [address], 5th Floor, [address] [place] [address] Phone: tel: fax: [facility] CARD [id number] Referral ID Status Reason Start Date Expiration Date Visits Re quested Visits Authorized [id number] Closed 05/23/2019 05/23/2020 1 1 Encounter Details Date Type Department Care Team (Late st Contact Info) Description 05/23/2019 Transcribe Orders [facility] Cardiovascular Medicine [address] [place] [address], 5th Floor, [address] [place] [address] Unknown, Unknown, MD Social History Tobacco Use [...] Associated Diagnoses Order Schedule Ambulatory referral to [facility] Cardiology Outpatient Referral Routine Ordered: 05/23/2019 documented as of this encounter Visit Diagnoses Not on filedocumented in this encounter Care Teams Financial Services Officer Relationship Specialty Start Date End Date Unknown, Unknown, MD PCP - General 05/22/19 07/04/19 Cory Hayes MD [address] [place] [address] Dr [place], JIMMY [id number] PCP - General Internal Medicine 07/05/19 documented as of this encounter Additional Source Comments The information contained in this document represents components of the legal health record. It is not the complete legal health record.[facility]
--- OUTSIDE RECORDS SUMMARY | 2025-06-26 12:43 | XMS_ITS | Clinical Summary ---
Author Organization [facility] Address [address] [place] [phone] Phone Care Team Providers Care Nutritional Services Director Name Role Phone Cory Hayes MD Primary Care Provider [phone] Medications levothyroxine (SYNTHROID, LEVOTHROID) 200 MCG tablet [...] Medical Devices Not on file Insurance OUT [facility] PPO CROSS OUT OF STATE PPO CROSS OUT OF [facility] [place] [address] [address] CROSS OUT OF STATE PPO BLUE CROSS OUT OF STATE PPO BLUE CROSS OUT OF STATE PPO BLUE CROSS OUT OF STATE PPO OUT OF [facility] PPO Member Subscriber Plan / Payer (Ef fective 2015-Present) Name:JadielKemar gupta Relation to Subscriber:Self Name:Kemar Peck Payer ID:[id number] (NAIC) Type:PPO Address: [address] [place] [id number] OUT [facility] PPO Care Teams Nutritional Services Director Relationship Specialty Start Date End Date Cory Hayes MD [address] [place] [address] [place] [address] PCP - General Internal Medicine 07/05/19 Additional Source Comments The information contained in this document represents components of the legal health record. It is not the complete legal health record.[facility]
--- OUTSIDE RECORDS SUMMARY | 2025-06-26 12:43 | XMS_ITS | Clinical Summary ---
Author Organization [facility] Address [address] [place] [phone] Phone Care Team Providers Care Client Support Administrator Name Role Phone Cara Baugh MD Primary Care Provider [phone] Allergies No known active allergies Social History [...] patient's age to complete this topic Insurance [facility] Care Teams Client Support Administrator Relationship Specialty Start Date End Date Cara Baugh MD [address] [place] [address] PCP - General Internal Medicine 02/05/25
== END 2025-06-26 11:12 | disposition home or self-care (01) ==
LOC: HO.HGS 10:50
PROVIDERS: PCP Internal Medicine
DX: Z98.890 Other specified postprocedural states (principal)
CPT/HCPCS: 99024

== ENCOUNTER 2025-07-09 11:23 | Outpatient (AMB) | payer BC, SELFPAY ==
--- NOTE | 2025-07-09 11:35 | MHC.OFFVIS ---
Vital Signs 07/09/25 11:39 Height 5 ft 6 in Weight 190 lb 15.995 oz BMI 30.8 Intake Visit Reasons: 2 wk follow up s/p EUA hemorrhoidectomy Intake Note: Pt presents for 2 week follow-up status post hemorrhoidectomy. Pt c/o; reports no complaints at this time. Trim Carpenter Required: No Accompanied by: Self / Same As Patient Allergies peanut Allergy (Verified 07/09/25 11:39) Angioedema HPI HPI 2 wk follow up s/p EUA hemorrhoidectomy: Details: He is here for postop visit after hemorrhoidectomy last June 08. He says he does not have any significant pain anymore. He does complain of significant itching. He still occasionally sees small amounts of blood on wiping with bowel movements. [facility] Medical History Bleeding hemorrhoids Annual visit for general adult medical examination with abnormal findings Sinus bradycardia Hx of angioedema Sleeping difficulty Overweight (BMI 25.0-29.9) Osteoarthritis Mixed anxiety and depressive disorder Erectile dysfunction Postablative hypothyroidism Family history of prostate cancer in father Lumbar disc herniation Dyslipidemia Essential hypertension Hyperlipemia Surgical History History of hemorrhoidectomy (~06/08/25) History of total left knee replacement (TKR) (10/2021) Hx of colonoscopy (10/2020) History of circumcision History of total right knee replacement Family History Mother GERD (gastroesophageal reflux disease) Breast cancer Father HTN (hypertension) CVA (cerebral vascular accident) Prostate cancer Social History Household Members: Family Household Members Other:: father Housing: House Are you a primary acute care occupational therapist to a significant other at home: No Do you presently have visiting nurse or other home services: No Alcohol intake: current Alcohol intake frequency: a few times a month Comment: COUNTS CORRECT Patient Tobacco Use Status: Never used Tobacco e-Cigarette/Vaping Use: Never Used service: No Current occupational status: employed 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[employer] Cognitive needs: No Hearing needs: No Vision needs: Yes Review of Systems Const Denies chills and Denies fever(s) Card Denies chest pain, Denies dyspnea and Denies dyspnea on exertion Resp Denies cough, Denies dyspnea and Denies dyspnea on exertion GI Reports hematochezia and Denies change in bowel habits Denies hematuria and Denies difficulty urinating Musc Denies back pain and Denies limited range of motion Neuro Denies focal weakness and Denies convulsions Psych Denies depression and Denies mood swings Physical Exam Vital Signs: BMI result Body Mass Index 30.8 Const General: comfortable and no acute distress Resp Effort & Inspection: normal respiratory effort GI Other: Rectal exam shows hemorrhoidectomy sites to be well healed, he does have residual hemorrhoidal tissue, no signs of infection Assessment & Plan Assessment & Plan (1) Bleeding hemorrhoids: Code(s): K64.9 - Unspecified hemorrhoids Category: Medical Plan: Status post hemorrhoidectomy x2 columns. He is actually doing very well. His hemorrhoidectomy sites are well healed. He had does have residual hemorrhoids. His main complaint now as his itching. I am going to send him a prescription for Calmoseptine I told him to avoid straining and constipation. He can otherwise follow up with me on a p.r.n. basis. Coding Level of Care Code Global (57511) Diagnoses Bleeding hemorrhoids K64.9
[2025-07-09 11:39] VITALS: BMI 30.8
== END 2025-07-09 12:58 | disposition home or self-care (01) ==
LOC: HO.HGS 11:24
PROVIDERS: PCP Internal Medicine; Visit Provider Surgery
DX: K64.9 Unspecified hemorrhoids (principal)
CPT/HCPCS: 99024